=== PATIENT | male | born 1960 | race Caucasian/White ===

== ENCOUNTER → 2020-12-09 | Outpatient (CLI) | payer BC ==
--- NOTE | 2020-12-09 11:14 | XR ---
EXAMINATION TYPE: XR chest 2V DATE OF EXAM: 12/09/2020 COMPARISON: Chest x-ray 12/26/2011 HISTORY: Intercostal pain TECHNIQUE: Frontal and lateral views of the chest are obtained. FINDINGS: There is bandlike increased attenuation noted on the lateral exam which likely represents scarring, there is no pleural effusion or pneumothorax seen. The cardiac silhouette size is within n ormal limits. The osseous structures are intact, there is thoracic spondylosis. IMPRESSION: No acute cardiopulmonary process.
== END | disposition home or self-care (01) ==
LOC: RADXRMAIN 09:11
PROVIDERS: ATTEND Internal Medicine
DX: R07.82 Intercostal pain (principal)
CPT/HCPCS: 71046

== ENCOUNTER → 2021-12-08 | Outpatient (CLI) | payer BC ==
--- NOTE | 2021-12-08 09:06 | XR ---
EXAMINATION TYPE: XR ribs LT DATE OF EXAM: 12/08/2021 COMPARISON: Chest x-ray 12/09/2020 HISTORY: Pain TECHNIQUE: 4 views submitted FINDINGS: There is expansion and destructive change involving the lateral margin of the left seventh rib. Arthropathy of the shoulder. Suspect additional expansion of the anterior margin of the left 10t h rib. IMPRESSION: 1. There appears to be expansion of destructive change involving the left seventh rib laterally recom mend CT scan to assess for mass. 2. Expansion of the anterolateral left 10th rib also expected. Intraosseous lesion suspected.
== END ==
LOC: RADXRMAIN 08:25
PROVIDERS: ATTEND Internal Medicine
DX: M99.88 Other biomechanical lesions of rib cage (principal)

== ENCOUNTER → 2021-12-14 | Outpatient (CLI) | payer BC ==
[2021-12-14 12:51] LABS: African American GFR (CKD) >90 (>60 ml/min/1.73 sqM); Blood Urea Nitrogen 15 mg/dL (9-20); Non-African American GFR(CKD) 89 (>60 ml/min/1.73 sqM)
--- NOTE | 2021-12-14 15:43 | CT ---
EXAMINATION TYPE: CT Chest Abd Pelvis w con DATE OF EXAM: 12/14/2021 COMPARISON: CT dated 12/27/2014 HISTORY: Left sided rib/flank pain. CT DLP: 2275.1 mGycm Automated exposure control for dose reduction was used. CONTRAST: CT scan of the chest, abdomen and pelvis is performed with Oral Contrast and with IV Contrast, patien t injected with 100ml mL of Isovue 300. FINDINGS: LUNGS: 4 mm nodule is seen along the superior aspect of the right oblique fissure (image #20, series 4), slightly more prominent compared to 2015 CT scan when it measured 3 mm. Stable 5 mm nodule at the anterior aspect of the left lower lobe, image #32, series 4. Scattered bilateral basal linear pulmon sabrina atelectasis. Unremarkable lungs otherwise. Patent central airways. No pleural effusion. MEDIASTINUM: There are no greater than 1 cm hilar or mediastinal lymph nodes. No cardiomegaly. Arter ial and coronary atherosclerotic calcifications. No pericardial effusion is seen. OTHER: Expansile lytic lesion is seen involving the axillary portion of the left seventh rib measuri ng 2.7 x 5 cm, not appreciated previously. Similar yet smaller lesion measuring 2 cm is seen at the a xillary portion of the right sixth rib. 16 mm lytic lesion in T2 vertebral body. Other multiple bilat eral costal and thoracic vertebral tiny lytic lesions, not appreciated previously. LIVER/GB: Enlarged liver with suspected hepatic steatosis. With this limitation, no definite hepatic focal lesion identified. Unremarkable gallbladder. PANCREAS: No significant abnormality is seen. SPLEEN: No significant abnormality is seen. ADRENALS: No significant abnormality is seen. KIDNEYS: Left renal cysts without suspicious feature, otherwise unremarkable kidneys. BOWEL: Unremarkable nondistended stomach, duodenum and small bowel. No gross colonic mass. Normal ap pendix. REPRODUCTIVE ORGANS: Enlarged heterogeneous prostate with prostatic concretion, please correlate with PSA level. Unremarkable seminal vesicles and urinary bladder. LYMPH NODES: No greater than 1 cm abdominal or pelvic lymph nodes are appreciated. OSSEOUS STRUCTURES: Multiple lytic lesions are seen in the lumbar spine, sacrum and pelvic bones kavitha uring up to 2.2 cm in the right iliac bone, 18 mm in the left acetabulum and 2.1 cm in L1 vertebral b obdulio posteriorly, extending to the left pedicle. L5 vertebral body lytic lesion with partial collapse and fracture of the upper endplate. OTHER: Large infrarenal abdominal aortic aneurysm measuring 5.3 cm compared to 3.[address] scan . More inferior smaller aneurysm measuring 3.5 cm. Extensive arterial atherosclerotic calcifications. Ectatic left common iliac artery measuring 18 mm. Bilateral fat-containing inguinal hernias. IMPRESSION: 1. Multiple osseous lytic lesions appreciated in the chest, abdomen and pelvis, largest involving the axillary portion of the left seventh rib as described above. This could represent metastasis of unkn own primary or multiple myeloma. Recommend further workup for multiple myeloma and bone scan assessme nt. No obvious primary disease seen in the chest, abdomen or the pelvis. 2. Enlarged prostate, please correlate with PSA level. 3. Significant interval enlargement of the infrarenal abdominal aortic aneurysm, for vascular surgery consultation. Other incidental findings as described above.
== END | disposition home or self-care (01) ==
LOC: RADCTMAIN 11:54
PROVIDERS: ATTEND Internal Medicine
DX: I10 Essential (primary) hypertension (principal); R63.4 Abnormal weight loss; R07.81 Pleurodynia; N40.0 Benign prostatic hyperplasia without lower urinary tract symptoms
CPT/HCPCS: 82565; 84520; 71260; 74177; 36415; Q9967

== ENCOUNTER → 2021-12-22 | Outpatient (CLI) | payer BC ==
[2021-12-23 01:47] LABS: Protein, Total 7.1 g/dL (6.2-8.2)
[2021-12-23 07:33] LABS: Free Kappa Lt Chain Qnt, Serum 1.12 mg/dL (0.33-1.94); Free Lambda Lt Chain Qnt, Seru 0.96 mg/dL (0.57-2.63)
== END | disposition home or self-care (01) ==
LOC: LABWHC1 12:59
PROVIDERS: ATTEND Internal Medicine
DX: M89.9 Disorder of bone, unspecified (principal)
CPT/HCPCS: 36415; 83883; 84165; 86334

== ENCOUNTER → 2021-12-29 | Outpatient (CLI) | payer BC ==
--- NOTE | 2021-12-29 14:11 | MR ---
MR brain without contrast HISTORY: Metastatic disease Multiplanar multisequence imaging obtained through the brain. Correlation CT brain 12/27/2014, CT chest abdomen pelvis 12/14/2021 Mucosal disease is present within the bilateral maxillary sinuses, ethmoid air cells and sphenoid sin us. The orbits show symmetric appearance. Within the right parietal calvarium, axial image 25, sagitt al image #27, coronal image #20 there is an oval focus of intermediate signal on 1 T1 weighted images , increased signal in inversion recovery T2-weighted sequences. Within the posterior nasopharynx on t he right there is a focus of hyperintensity, axial image #7 and inversion recovery T2-weighted sequen abigail, some central lower signal, possible polyp, inflammatory change. Corpus callosum, pituitary, cervical medullary junction, cerebellopontine angles are within normal li mits. There is no restricted diffusion. There are expected vascular flow voids. Brain signal is remarkable for some scattered foci of hyperintensity and inversion recovery T2-weight ed sequences, approximately 3-5 lesions are present, largest is within the external capsule on the ri ght measures approximately 6 mm, axial image 18. There is no hemorrhage or hydrocephalus. IMPRESSION: Indeterminate calvarial lesion, consider bone scan for better evaluation. Nonspecific whi te matter demyelination of questionable clinical significance. Contrast-enhanced study may add value. Sinus disease.
== END ==
LOC: RADMRIMAIN 12:28
PROVIDERS: ATTEND Orthopaedic Surgery
DX: M89.59 Osteolysis, multiple sites (principal)
CPT/HCPCS: 70551

== ENCOUNTER → 2021-12-31 | Outpatient (CLI) | payer BC ==
--- NOTE | 2022-01-02 06:46 | MR ---
EXAMINATION TYPE: MR madie/lspine wo con DATE OF EXAM: 12/31/2021 COMPARISON: Lumbar spine x-ray December 22, 2021. CT chest abdomen and pelvis December 14, 2021 HISTORY: Rib pain, multiple lesions seen on CT, osteolysis. TECHNIQUE: Multiplanar, multisequence imaging of the cervical and lumbar spine is performed without I V contrast. FINDINGS: Cervical spine: FINDINGS: Sagittal images of the cervical spine show the craniocervical junction to appear within nor mal limits. The cervical and upper thoracic spinal cord is normal in course, caliber, and signal. V ertebral alignment is anatomic. The vertebral body and intravertebral disk heights are normal. There is round focal low T1 and inferiorly isointense T2 lesion posterior inferior C4 level left of midlin e sagittal image 6 and larger lesion anterior T2 vertebra sagittal image 7. A third lesion anterior r ight C7 vertebra is noted coronal image 6. Axial images show C2-C3 level to appear within normal limits. Axial images at C3-C4 level show mild broad-based posterior disc protrusion minimally effacing anteri or thecal sac, mild bilateral neural foraminal narrowing is present. Axial images at C4-C5 level show some uncovertebral facet degenerative changes causing mild left-side d neural foraminal narrowing. There is confirmation of posterior round 8mm lesion slightly hyperinten se relative to remainder of vertebra at inferior C4 level. Axial images at C5-C6 level shows central disc protrusion effacing the anterior thecal sac along with mild bilateral neural foraminal narrowing. Axial images at C6-C7 and C7-T1 levels appear within normal limits. IMPRESSION: There are 3 subtle round lesions corresponding to lytic lesions on CT could reflect lytic metastatic disease or involvement from multiple myeloma. Correlate clinically. Mild multilevel degen erative changes are seen as detailed above. Lumbar spine: Sagittal images of the lumbar spine show vertebral body heights and alignment to appear satisfactory. Multilevel disc desiccation is seen but this space heights are maintained. The conus medullaris is normal in position and signal ending at mid L1 level. There are several round osseous lesions through out the lumbar vertebra including several L5 level for reference sagittal image 12, largest involves the superior endplate sagittal image 8. There is lesion involving the posterior superior L1 vertebra to left of midline extending into the pedicle and lateral elements of low T1 and slightly low T2 sign al. Axial images show confirm mild to moderate multilevel facet arthropathy. There is mild/moderate broad -based disc bulge at L2-L3 through L4-L5 levels with minimal effacement of the anterior thecal sac. B ilateral neural foramina fairly well maintained. Confirmation of osseous lesions with largest inferio r posterior L1 level extending into pedicle axial image 31 shows slight T1 hypointensity and T2 hyper intensity relative to remainder of the vertebra. There is known bilobed or loculated AAA measuring up to 5.0 cm transversely axial image 24 redemonstrated. IMPRESSION: Confirmation of known multiple osseous lesions could be product of metastatic disease and /or multiple myeloma. Mild multilevel degenerative changes of lumbar spine as detailed above. Known A AA up to 5.0 cm on this study is noted.
== END | disposition home or self-care (01) ==
LOC: RADMRIMAIN 20:46
PROVIDERS: ATTEND Orthopaedic Surgery
DX: M89.50 Osteolysis, unspecified site (principal)
CPT/HCPCS: 72141; 72148

== ENCOUNTER 2022-01-13 08:35 | Day surgery (SDC) | payer BC ==
[2022-01-13] MEDS ORDERED: HYDROmorphone 0.5 MG/0.5 ML SYRINGE IVP PRN (09:05)
[2022-01-13] MEDS ORDERED: ALPRAZolam 0.5 MG TAB PO PRN (09:05)
[2022-01-13 09:19] LABS: Mean Platelet Volume 7.6; Platelet Count 226 k/uL (150-450)
[2022-01-13 09:24] LABS: Prothrombin Time 10.5 sec (9.0-12.0)
[2022-01-13 09:35] VITALS: TEMP 97.6
[2022-01-13 11:55] VITALS: BP 128/81; PULSE 89; RESP 16
--- NOTE | 2022-01-13 12:41 | US ---
EXAMINATION TYPE: US FNA first lesion DATE OF EXAM: 01/13/2022 HISTORY: Left seventh rib mass. FINDINGS: Maximal barrier technique was utilized. Hand hygiene achieved with soap and water and alco hol-based hand rub. The skin overlying a suitable path to the patient's mass in the lateral left ant nth rib was localized with ultrasound and the overlying skin prepped and draped. Ultrasound was util ized with sterile technique. Lidocaine was used for local anesthesia. A skin price was made with a s calpel. An 18-gauge needle was advanced under direct ultrasound guidance and core specimen obtained of the mass. Specimen submitted in formalin to Pathology. Following the procedure, hemostasis achie zora and the patient is discharged in stable condition without complication. IMPRESSION:STATUS POST ULTRASOUND GUIDED CORE BIOPSY OF left rib MASS, PATHOLOGY IS PENDING. THIS NV OCEDURE IS PERFORMED BY THE UNDERSIGNED.
== END 2022-01-13 11:45 | disposition home or self-care (01) ==
LOC: RADPROMAIN 08:35
PROVIDERS: ATTEND Internal Medicine Hematology & Oncology
DX: M89.9 Disorder of bone, unspecified (principal); C79.51 Secondary malignant neoplasm of bone
CPT/HCPCS: 10005; 36415; 82947; 85049; 85610; 88305

== ENCOUNTER → 2022-01-26 | Outpatient (CLI) | payer BC ==
--- NOTE | 2022-01-26 15:58 | NM ---
EXAMINATION TYPE: NM bone scan whole body DATE OF EXAM: 01/26/2022 COMPARISON: CT scan 12/14/2021 HISTORY: History of malignancy Delayed whole-body scanning was performed following the injection of 22 mCi Tc 99m MDP. Images acqui red 4 hours post injection. FINDINGS: There are areas of intense abnormal uptake involving the bilateral rib cage suspicious for metastases . There are areas of moderate uptake involving the thoracic and lumbar spine likely degenerative. Add itional areas of more moderate focal uptake involving the vertebral column are concordant with CT sca n suggestive of malignancy. Abnormal uptake involving the shoulders and faintly within the feet typical of arthritic change. Photopenic defect involving the right iliac bone is compatible with bony metastasis. Area involving t he sacrum is less well seen. IMPRESSION: 1. Bone scan findings are concordant with CT findings suggestive of widespread bony metastasis involv ing the rib cage, pelvic bones and vertebral column.
== END | disposition home or self-care (01) ==
LOC: RADNMMAIN 09:49
PROVIDERS: ATTEND Internal Medicine Hematology & Oncology
DX: Z03.89 Encounter for observation for other suspected diseases and conditions ruled out (principal); C79.51 Secondary malignant neoplasm of bone
CPT/HCPCS: 78306; A9503

== ENCOUNTER 2022-02-08 07:45 | Inpatient (IN) | payer BC ==
[2022-02-08] MEDS ORDERED: SODIUM CHLORIDE 0.9% 1,000 ML IV STA (08:15)
[2022-02-08] MEDS ORDERED: ONDANSETRON 4 MG/2 ML VIAL IVP STA (08:15)
[2022-02-08] MEDS ORDERED: HYDROmorphone 0.5 MG/0.5 ML SYRINGE IVP STA ×4 (08:15→11:15)
[2022-02-08 08:48] LABS: Basophils # (A) 0.1 k/uL (0-0.2); Basophils % (A) 2 %; Eosinophils # (A) 0.3 k/uL (0-0.7); Eosinophils % (A) 4 %; HCT 44.1 % (39.0-53.0); HGB 14.6 gm/dL (13.0-17.5); Lymphocytes # (A) 1.6 k/uL (1.0-4.8); Lymphocytes % (A) 22 %; MCH 28.2 pg (25.0-35.0); MCHC 33.1 g/dL (31.0-37.0); Monocytes # (A) 0.6 k/uL (0-1.0); Monocytes % (A) 9 %; Neutrophils # (A) 4.5 k/uL (1.3-7.7); Neutrophils % (A) 62 %; Platelet Count 237 k/uL (150-450); RBC 5.19 m/uL (4.30-5.90); RDW 13.1 % (11.5-15.5); WBC 7.4 k/uL (3.8-10.6)
[2022-02-08 09:05] LABS: ALT 42 U/L (4-49); AST 62 U/L (17-59); African American GFR (CKD) >90 (>60 ml/min/1.73 sqM); Albumin 4.7 g/dL (3.5-5.0); Alkaline Phosphatase 62 U/L (38-126); Amylase 48 U/L (30-110); Anion Gap 8 mmol/L; Blood Urea Nitrogen 16 mg/dL (9-20); Calcium 9.6 mg/dL (8.4-10.2); Carbon Dioxide 27 mmol/L (22-30); Chloride 101 mmol/L (98-107); Glucose 155 mg/dL (74-99); Lipase 110 U/L (23-300); Non-African American GFR(CKD) >90 (>60 ml/min/1.73 sqM); Potassium 4.2 mmol/L (3.5-5.1); Sodium 136 mmol/L (137-145); Total Bilirubin 0.8 mg/dL (0.2-1.3); Total Protein 7.4 g/dL (6.3-8.2)
[2022-02-08 09:07] LABS: INR 0.9 (<1.2); Partial Thromboplastin Time 22.8 sec (22.0-30.0); Prothrombin Time 9.9 sec (9.0-12.0)
--- NOTE | 2022-02-08 10:04 | ED ---
Abdominal Pain HPI - General Chief Complaint: Abdominal Pain Stated Complaint: back pain, cancer pt Time Seen by Provider: 02/08/22 08:06 Source: patient, family, RN notes reviewed Mode of arrival: wheelchair Limitations: no limitations - History of Present Illness Initial Comments: This a 61-year-old male presents emergency department with chief complaint of left-sided abdominal pain, back pain. Patient states that recently found out that he has diffuse areas of cancer of his bone. He states that they found an his rib, back and pelvis. States his pain is worse and much different than the pain is been experiencing the unsure what the primary cause of his cancer is. Patient denies any history of any bowel infections. Patient states she's had subjective fevers chills and sweats. No chest pain or shortness breath patient has no dysuria he does not that his been constipated for last 4 days. - Related Data Home Medications Medication Instructions Recorded Confirmed Tamsulosin [Flomax] 0.4 mg PO DAILY 12/27/14 02/08/22 Cyclobenzaprine [Flexeril] 10 mg PO HS 01/06/22 02/08/22 HYDROcodone/APAP 5-325MG [Fallon 1 tab PO Q6HR PRN 01/06/22 02/08/22 5-325] Lisinopril-Hctz 10-12.5 mg 0.5 tab PO DAILY 01/06/22 02/08/22 [Zestoretic 10-12.5] metFORMIN HCL 500 mg PO BID 01/06/22 02/08/22 Omeprazole 40 mg PO DAILY 02/08/22 02/08/22 Allergies Allergy/AdvReac Type Severity Reaction Status Date / Time No Known Allergies Allergy Verified 02/08/22 09:41 Review of Systems ROS Statement: Those systems with pertinent positive or pertinent negative responses have been documented in the HPI. ROS Other: All systems not noted in ROS Statement are negative. Past Medical History Past Medical History: Asthma, Diabetes Mellitus, Hypertension, Prostate Disorder Additional Past Medical History / Comment(s): BPH, rib lesions and small lesion on lung found on imaging, aneursym, hernia History of Any Multi-Drug Resistant Organisms: None Reported Past Surgical History: Appendectomy, Hernia Repair Additional Past Surgical History / Comment(s): went to remove appendix but patient did not have one Past Anesthesia/Blood Transfusion Reactions: No Reported Reaction Past Psychological History: No Psychological Hx Reported Smoking Status: Never smoker Past Alcohol Use History: None Reported Past Drug Use History: None Reported - Past Family History Father Family Medical History: No Reported History General Exam Limitations: no limitations General appearance: alert, in no apparent distress Head exam: Present: atraumatic, normocephalic, normal inspection Eye exam: Present: normal appearance, PERRL, EOMI. Absent: scleral icterus, conjunctival injection, periorbital swelling ENT exam: Present: normal exam, normal oropharynx, mucous membranes moist Neck exam: Present: normal inspection. Absent: tenderness, meningismus, lymphadenopathy Respiratory exam: Present: normal lung sounds bilaterally. Absent: respiratory distress, wheezes, rales, rhonchi, stridor Cardiovascular Exam: Present: regular rate, normal rhythm, normal heart sounds. Absent: systolic murmur, diastolic murmur, rubs, gallop, clicks GI/Abdominal exam: Present: soft, tenderness, normal bowel sounds. Absent: distended, guarding, rebound, rigid Back exam: Present: tenderness, paraspinal tenderness, vertebral tenderness. Absent: full ROM Neurological exam: Present: alert, oriented X3 Skin exam: Present: warm, dry, intact, normal color. Absent: rash Course Vital Signs 02/08/22 07:46 Temperature 97.0 F L Pulse Rate 95 Respiratory 18 Rate Blood Pressure 144/88 O2 Sat by Pulse 97 Oximetry Medical Decision Making - Medical Decision Making CT shows evidence of worsening vertebral compression. Patient's pain is uncontrolled. Patient will be admitted for pain management and further evaluation. - Lab Data Result diagrams: 02/08/22 08:38 02/08/22 08:38 Lab Results 02/08/22 02/08/22 02/08/22 Range/Units 08:38 08:38 08:38 WBC 7.4 (3.8-10.6) k/uL RBC 5.19 (4.30-5.90) m/uL Hgb 14.6 (13.0-17.5) gm/dL Hct 44.1 (39.0-53.0) % MCV 85.0 (80.0-100.0) fL MCH 28.2 (25.0-35.0) pg MCHC 33.1 (31.0-37.0) g/dL RDW 13.1 (11.5-15.5) % Plt Count 237 (150-450) k/uL MPV 8.0 Neutrophils % 62 % Lymphocytes % 22 % Monocytes % 9 % Eosinophils % 4 % Basophils % 2 % Neutrophils # 4.5 (1.3-7.7) k/uL Lymphocytes # 1.6 (1.0-4.8) k/uL Monocytes # 0.6 (0-1.0) k/uL Eosinophils # 0.3 (0-0.7) k/uL Basophils # 0.1 (0-0.2) k/uL PT 9.9 (9.0-12.0) sec INR 0.9 (<1.2) APTT 22.8 (22.0-30.0) sec Sodium 136 L (137-145) mmol/L Potassium 4.2 (3.5-5.1) mmol/L Chloride 101 (98-107) mmol/L Carbon Dioxide 27 (22-30) mmol/L Anion Gap 8 mmol/L BUN 16 (9-20) mg/dL Creatinine 0.84 (0.66-1.25) mg/dL Est GFR (CKD-EPI)AfAm >90 (>60 ml/min/1.73 sqM) Est GFR (CKD-EPI)NonAf >90 (>60 ml/min/1.73 sqM) Glucose 155 H (74-99) mg/dL Plasma Lactic Acid Jamaal (0.7-2.0) mmol/L Calcium 9.6 (8.4-10.2) mg/dL Total Bilirubin 0.8 (0.2-1.3) mg/dL AST 62 H (17-59) U/L ALT 42 (4-49) U/L Alkaline Phosphatase 62 (38-126) U/L Total Protein 7.4 (6.3-8.2) g/dL Albumin 4.7 (3.5-5.0) g/dL Amylase 48 (30-110) U/L Lipase 110 (23-300) U/L 02/08/22 Range/Units 08:38 WBC (3.8-10.6) k/uL RBC (4.30-5.90) m/uL Hgb (13.0-17.5) gm/dL Hct (39.0-53.0) % MCV (80.0-100.0) fL MCH (25.0-35.0) pg MCHC (31.0-37.0) g/dL RDW (11.5-15.5) % Plt Count (150-450) k/uL MPV Neutrophils % % Lymphocytes % % Monocytes % % Eosinophils % % Basophils % % Neutrophils # (1.3-7.7) k/uL Lymphocytes # (1.0-4.8) k/uL Monocytes # (0-1.0) k/uL Eosinophils # (0-0.7) k/uL Basophils # (0-0.2) k/uL PT (9.0-12.0) sec INR (<1.2) APTT (22.0-30.0) sec Sodium (137-145) mmol/L Potassium (3.5-5.1) mmol/L Chloride (98-107) mmol/L Carbon Dioxide (22-30) mmol/L Anion Gap mmol/L BUN (9-20) mg/dL Creatinine (0.66-1.25) mg/dL Est GFR (CKD-EPI)AfAm (>60 ml/min/1.73 sqM) Est GFR (CKD-EPI)NonAf (>60 ml/min/1.73 sqM) Glucose (74-99) mg/dL Plasma Lactic Acid Jamaal 1.5 (0.7-2.0) mmol/L Calcium (8.4-10.2) mg/dL Total Bilirubin (0.2-1.3) mg/dL AST (17-59) U/L ALT (4-49) U/L Alkaline Phosphatase (38-126) U/L Total Protein (6.3-8.2) g/dL Albumin (3.5-5.0) g/dL Amylase (30-110) U/L Lipase (23-300) U/L Disposition Clinical Impression: Metastatic bone cancer, Intractable pain, Back pain Disposition: ADMITTED IP TO THIS [facility] Condition: Fair Referrals: Criselda Herbert MD [Primary Care Provider] - 1-2 days
--- NOTE | 2022-02-08 10:19 | CT ---
EXAMINATION TYPE: CT abdomen pelvis w con DATE OF EXAM: 02/08/2022 COMPARISON: CT December 14, 2021 HISTORY: BACK PAIN. CANCER PT CT DLP: 1888 mGycm, Automated Exposure Control for Dose Reduction was Utilized. CONTRAST: CT scan of the abdomen and pelvis is performed without oral and with IV Contrast, patient injected wi th 100ML mL of Isovue 300. FINDINGS: LUNG BASES: Mild bibasilar linear scarring and/or atelectasis. LIVER/GB: Liver is diffusely low-density consistent with diffuse fatty infiltration. PANCREAS: No significant abnormality is seen. SPLEEN: No significant abnormality is seen. ADRENALS: No significant abnormality is seen. KIDNEYS: Symmetric intramedullary uptake and excretion without hydronephrosis seen bilaterally. Mildl y distended bladder. BOWEL: Suboptimal evaluation without enteric contrast. No suspicious small or large bowel dilatation is seen. PROSTATE/SEMINAL VESICLES: Enlarged prostate bulging on bladder base redemonstrated consistent with B PH. LYMPH NODES: No greater than 1cm abdominal or pelvic lymph nodes are appreciated. OSSEOUS STRUCTURES: Lytic lesion right iliac bone on image 65 has increased in size from prior. Addit ional smaller scattered lytic lesions throughout the pelvis and bilateral femurs along with the lumba r spine are more numerous and larger from prior largest posterior aspect of L1 vertebra extends into the pedicle and anterior aspect of the spinal canal current study axial image 33 and sagittal image 6 4. Lytic lesion superior L5 vertebra breaks the endplate similar to prior. OTHER: Persistent focal AAA up to 5.1 cm axial image 40 unchanged from prior. IMPRESSION: Lytic osseous metastatic neoplastic progression with L1 lesion abutting the left anterola teral aspect of the spinal canal. Otherwise no significant new or acute finding identified.
[2022-02-08] MEDS ORDERED: HYDROmorphone 1 MG/ML 1 ML SYRINGE IVP PRN (11:39)
[2022-02-08] MEDS ORDERED: TEMAZEPAM 15 MG CAP PO PRN (11:39)
[2022-02-08] MEDS ORDERED: ONDANSETRON 4 MG/2 ML VIAL IVP PRN (11:39)
[2022-02-08] MEDS ORDERED: HYDROmorphone 0.5 MG/0.5 ML SYRINGE IVP PRN ×2 (11:39→15:54)
[2022-02-08] MEDS ORDERED: NALOXONE 0.4 MG/ML 1 ML VIAL IV PRN (11:39)
[2022-02-08] MEDS ORDERED: bisacodyL 5 MG TABLET.DR PO PRN (11:40)
--- NOTE | 2022-02-08 13:14 | P.HPIM ---
History of Present Illness H&P Date: 02/08/22 Chief Complaint: Back pain 61 year old male who comes into the hospital with severe back pain. Patient states recent diagnosis of metastatic bone lesions. He reports his last oncology visit was 3 weeks ago. Unfortunately they have not found a primary diagnosis of malignancy. Patient reports that he is having new severe back. Patient denies any history of any bowel incontinence. Patient states she's had subjective fevers chills and sweats. No chest pain or shortness breath patient has no dysuria. Review of Systems For complete 12 point review of system was completed and pertinent positives and negatives noted in HPI Past Medical History Past Medical History: Asthma, Diabetes Mellitus, Hypertension, Prostate Disorder Additional Past Medical History / Comment(s): BPH, rib lesions and small lesion on lung found on imaging, aneursym, hernia History of Any Multi-Drug Resistant Organisms: None Reported Past Surgical History: Appendectomy, Hernia Repair Additional Past Surgical History / Comment(s): went to remove appendix but patient did not have one Past Anesthesia/Blood Transfusion Reactions: No Reported Reaction Past Psychological History: No Psychological Hx Reported Smoking Status: Never smoker Past Alcohol Use History: None Reported Past Drug Use History: None Reported - Past Family History Father Family Medical History: No Reported History Medications and Allergies Home Medications Medication Instructions Recorded Confirmed Type Tamsulosin [Flomax] 0.4 mg PO DAILY 12/27/14 02/08/22 History Cyclobenzaprine [Flexeril] 10 mg PO HS 01/06/22 02/08/22 History HYDROcodone/APAP 5-325MG [[place] 1 tab PO Q6HR PRN 01/06/22 02/08/22 History 5-325] Lisinopril-Hctz 10-12.5 mg 0.5 tab PO DAILY 01/06/22 02/08/22 History [Zestoretic 10-12.5] metFORMIN HCL 500 mg PO BID 01/06/22 02/08/22 History Omeprazole 40 mg PO DAILY 02/08/22 02/08/22 History Allergies Allergy/AdvReac Type Severity Reaction Status Date / Time No Known Allergies Allergy Verified 02/08/22 09:41 Physical Exam Osteopathic Statement: *. No significant issues noted on an osteopathic stru ctural exam other than those noted in the History and Physical/Consult. Vitals: Vital Signs Temp Pulse Resp BP Pulse Ox 02/08/22 11:45 85 16 123/86 96 02/08/22 07:46 97.0 F L 95 18 144/88 97 Intake and Output 02/07/22 02/08/22 02/08/22 22:59 06:59 14:59 Other: Weight 113.398 kg General appearance: alert, in no apparent distress Head exam: Present: atraumatic, normocephalic, normal inspection Eye exam: Present: normal appearance, PERRL, EOMI. Absent: scleral icterus, conjunctival injection, periorbital swelling ENT exam: Present: normal exam, normal oropharynx, mucous membranes moist Neck exam: Present: normal inspection. Absent: tenderness, meningismus, lymphadenopathy Respiratory exam: Present: normal lung sounds bilaterally. Absent: respiratory distress, wheezes, rales, rhonchi, stridor Cardiovascular Exam: Present: regular rate, normal rhythm, normal heart sounds. Absent: systolic murmur, diastolic murmur, rubs, gallop, clicks GI/Abdominal exam: Present: soft, tenderness, normal bowel sounds. Absent: distended, guarding, rebound, rigid Back exam: Present: tenderness, paraspinal tenderness, vertebral tenderness. Absent: full ROM Neurological exam: Present: alert, oriented X3 Skin exam: Present: warm, dry, intact, normal color. Absent: rash Results CBC & Chem 7: 02/08/22 08:38 02/08/22 08:38 Labs: Abnormal Lab Results - Last 24 Hours (Table) 02/08/22 Range/Units 08:38 Sodium 136 L (137-145) mmol/L Glucose 155 H (74-99) mg/dL AST 62 H (17-59) U/L Assessment and Plan (1) Back pain Current Visit: Yes Status: Acute Code(s): M54.9 - DORSALGIA, UNSPECIFIED SNOMED Code(s): 699345395 (2) Intractable pain Current Visit: Yes Status: Acute Code(s): R52 - PAIN, UNSPECIFIED SNOMED Code(s): 13733392 (3) Metastatic bone cancer Current Visit: Yes Status: Acute Code(s): C41.9 - MALIGNANT NEOPLASM OF BONE AND ARTICULAR CARTILAGE, UNSP SNOMED Code(s): 793163336 Plan: Intractable back pain Multiple lytic lesions -Patient admitted to observation floor for pain control and evaluation by hematology oncology -Patient had CT abdomen and pelvis performed showing lytic osseous metastatic neoplastic progression with L1 lesion abutting the left anterolateral aspect of the spinal canal. -Continue with pain control with IV Dilaudid for breakthrough. We'll also add oxycodone, IV Toradol. Continue with Flexeril Diabetes mellitus -Hold metformin and continue with sliding scale coverage Hypertension -Currently controlled continue with home medications lisinopril hydrochlorothiazide Diet: Diabetic DVT prophylaxis: Lovenox CODE STATUS: Full
[2022-02-08] MEDS ORDERED: MAGNESIUM HYDROXIDE 2,400 MG/10 ML CUP PO PRN (14:05)
[2022-02-08] MEDS ORDERED: MAGNESIUM HYDROXIDE 2,400 MG/10 ML CUP PO STA (14:05)
[2022-02-08] MEDS ORDERED: MORPHINE SULFATE 4 MG/ML SYRINGE IVP PRN (14:09)
[2022-02-08] MEDS ORDERED: MORPHINE SULFATE 2 MG/ML SYRINGE IVP PRN (14:09)
--- NOTE | 2022-02-08 14:39 | P.CONS ---
History of Present Illness - Reason for Consult Consult date: 02/08/22 bone lesions, cord compression Requesting physician: Marcelino Chi - Chief Complaint intractable pain - History of Present Illness Mr. Scott is a very pleasant 61-year-old male who was recently seen in late December by Dr. Davison. Earlier this year he presented with left-sided chest pain, generally after physical exertion, slow to improve. This is been going on for at least a year previously. Pain was moderately severe, 7/10. He brought this to the attention of his PCP, x-ray of the ribs 12/08/21 showed destructive changes with expansion involving the left seventh rib. CT CAP 12/14/21 showed multiple osseous lytic lesions in the chest, abdomen and pelvis, there was partial collapse and fracture of the L5 vertebral body. PSA was normal. Patient was referred to Oncology. Patient was worked up for multiple myeloma. 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 M protein 0.2 g/dl, not N and overt myeloma. Biopsy of the rib lesion was requested. This was unfortunately nondiagnostic. MRI of the C and L-spine did show extensive rubio involvement. Bone scan was ordered, patient referred to Orthopedic Spine Surgeon for biopsy and to see if there was anything further that they could offer. This follow-up was pending. Patient comes to ER with c/o persistent back pain, progressive over the last 4 days to the point where it was "unbearable", patient using prescribed pain meds but, not getting any relief. He is unable to sit up, he is been having to use a bedpan a home. The pain is so intense that it causes him to have severe sweats and he will come close to passing out. Patient has also not had a bowel movement in 4 days. He denies fevers, chills, chest pain, cough, nausea, vomiting, abdominal pain or cramping, he has sensation of bowel and bladder, no incontinence, he denies numbness or tingling in the lower extremities. Review of Systems 14 point ROS is neg except as stated in HPI Past Medical History Past Medical History: Asthma, Cancer, COPD, Diabetes Mellitus, Hypertension, Prostate Disorder, Vascular Disorder Additional Past Medical History / Comment(s): Pt recently diagnosed with metastatic cancer to bone, NIDDM type II recently diagnosed, abdominal aortic aneurysm recently diagnosed, bilateral inguinal hernias, BPH, past gastric ulcer. History of Any Multi-Drug Resistant Organisms: None Reported Past Surgical History: Hernia Repair Additional Past Surgical History / Comment(s): Surgery to remove appendix and found that pt did not have one, umbilical hernia repair, EGD, colonoscopy Past Anesthesia/Blood Transfusion Reactions: No Reported Reaction Past Psychological History: No Psychological Hx Reported Additional Psychological History / Comment(s): Pt resides with his spouse. He does not have any assistive device but thinks he may need something soon. He is currently unable to drive d/t pain, his spouse can drive. Smoking Status: Light tobacco smoker Past Alcohol Use History: Rare Past Drug Use History: None Reported - Past Family History Father History Unknown: Yes Family Medical History: No Reported History Additional Family Medical History / Comment(s): Pt is estranged. Mother History Unknown: Yes Additional Family Medical History / Comment(s): Pt is estranged Medications and Allergies Home Medications Medication Instructions Recorded Confirmed Type Tamsulosin [Flomax] 0.4 mg PO DAILY 12/27/14 02/08/22 History Cyclobenzaprine [Flexeril] 10 mg PO HS 01/06/22 02/08/22 History HYDROcodone/APAP 5-325MG [[place] 1 tab PO Q6HR PRN 01/06/22 02/08/22 History 5-325] Lisinopril-Hctz 10-12.5 mg 0.5 tab PO DAILY 01/06/22 02/08/22 History [Zestoretic 10-12.5] metFORMIN HCL 500 mg PO BID 01/06/22 02/08/22 History Omeprazole 40 mg PO DAILY 02/08/22 02/08/22 History Allergies Allergy/AdvReac Type Severity Reaction Status Date / Time No Known Allergies Allergy Verified 02/08/22 09:41 Physical Exam Vitals: Vital Signs Temp Pulse Resp BP Pulse Ox 02/08/22 11:45 85 16 123/86 96 02/08/22 07:46 97.0 F L 95 18 144/88 97 Intake and Output 02/07/22 02/08/22 02/08/22 22:59 06:59 14:59 Other: Weight 113.398 kg - Constitutional General appearance: cooperative, mild distress, obese - EENT Eyes: anicteric sclerae, EOMI ENT: hearing grossly normal, normal oropharynx - Neck Neck: no lymphadenopathy - Respiratory Respiratory: bilateral: CTA - Cardiovascular Rhythm: regular Heart sounds: normal: S1, S2 Abnormal Heart Sounds: no systolic murmur, no diastolic murmur, no rub, no S3 Gallop, no S4 Gallop, no click, no other leg Peripheral Edema: bilateral: None - Gastrointestinal General gastrointestinal: no absent bowel sounds, decreased bowel sounds, distended, no hepatomegaly, no hyperactive bowel sounds, no normal bowel sounds, no organomegaly, no rigid, no scaphoid, soft, no splenomegaly, no tenderness, no umbilical hernia, no ventral hernia - Integumentary Integumentary: normal - Neurologic Pt able discern light touch on lower extremities. Neurologic: CNII-XII intact - Musculoskeletal BLE pain when standing or sitting up, no muscle wasting noted. Hip flexion, knee extension, plantar flexion all intact, strength maintained bilaterally 4- 5/5. - Psychiatric Psychiatric: A&O x's 3, appropriate affect, intact judgment & insight Results CBC & Chem 7: 02/08/22 08:38 02/08/22 08:38 Labs: Abnormal Lab Results - Last 24 Hours (Table) 02/08/22 Range/Units 08:38 Sodium 136 L (137-145) mmol/L Glucose 155 H (74-99) mg/dL AST 62 H (17-59) U/L CT scan - abdomen: report reviewed CT scan - pelvis: report reviewed (ET of the abdomen and pelvis without contrast impression is osseous metastatic L1 lesion abutting the left anterior lateral aspect of the spine.) Assessment and Plan (1) Bone lesion Current Visit: Yes Status: Acute Priority: High Code(s): M89.9 - DISORDER OF BONE, UNSPECIFIED SNOMED Code(s): 410302729 (2) Back pain Current Visit: Yes Status: Acute Priority: High Code(s): M54.9 - DORSALGIA, UNSPECIFIED SNOMED Code(s): 766248361 (3) Intractable pain Current Visit: Yes Status: Acute Priority: High Code(s): R52 - PAIN, UNSPECIFIED SNOMED Code(s): 18494403 Plan: Previous rib biopsy nondiagnostic. Laboratory workup thus far nondiagnostic. Patient was due to see Dr. Mejia sent in the outpatient setting for evaluation for possible surgical intervention and/or just biopsy-needed for diagnosis. Unfortunately, pain became unbearable for him. Patient is now admitted for pain control. Have consulted Dr. Murphy for evaluation and recommendations. Discussed case with PharmD. Patient's pain medications have been adjusted. IV morphine range dosing and IV dexamethasone, 4 mg every 6 hours, added to pain mgmt regimen. Continuation of NSAIDs and Flexeril as prescribed. Addition of senna/Colace twice a day, 1 dose of milk of magnesia and milk of mag when necessary for suspected narcotic-induced constipation, may also have slowed bowel motility because of spinal cord being pressed upon. Discussed plan of care with patient and his . They are in agreement for medication adjustments, bowel regimen and plan to see Orthopedic Spine Surgeon.
[2022-02-08] MEDS: KETOROLAC 15 MG/ML 1 ML VIAL IVP PRN ×2 (15:16→21:16)
[2022-02-08] MEDS: DEXAMETHASONE SOD PHOSPHATE 4 MG/ML 1 ML VIAL IVP SCH (15:16)
[2022-02-08 15:57] LABS: Appearance,Urine Clear (Clear); Bilirubin,Urine Negative (Negative); Blood,Urine Negative (Negative); Color,Urine Yellow; Glucose,Urine (UA) Negative (Negative); Ketones,Urine Negative (Negative); Leukocyte Esterase,Urine Negative (Negative); Nitrite,Urine Negative (Negative); Protein,Urine Negative (Negative); Specific Gravity,Urine 1.038 (1.001-1.035); Urobilinogen,Urine <2.0 mg/dL (<2.0)
[2022-02-08 16:53] LABS: Glucose,Whole Blood 157 mg/dL (75-99)
[2022-02-08] MEDS: SENNOSIDES-DOCUSATE SODIUM 1 EACH TAB PO SCH (20:36)
[2022-02-08] MEDS: CYCLOBENZAPRINE 10 MG TAB PO SCH (20:36)
[2022-02-08 20:49] LABS: Glucose,Whole Blood 197 mg/dL (75-99)
[2022-02-08] MEDS ORDERED: metFORMIN 500 MG TAB PO SCH (21:00)
[2022-02-08] MEDS: INSULIN ASPART (NovoLOG) 100 UNIT/ML VIAL SQ SCH (21:15)
[2022-02-09] MEDS: DEXAMETHASONE SOD PHOSPHATE 4 MG/ML 1 ML VIAL IVP SCH ×4 (00:01→17:01)
[2022-02-09] MEDS: KETOROLAC 15 MG/ML 1 ML VIAL IVP PRN ×4 (03:03→22:31)
[2022-02-09 07:07] LABS: Glucose,Whole Blood 179 mg/dL (75-99)
[2022-02-09] MEDS: LISINOPRIL-HCTZ 10-12.5 MG 1 EACH TAB PO SCH (07:20)
[2022-02-09] MEDS: PANTOPRAZOLE 40 MG TABLET PO SCH (07:21)
[2022-02-09] MEDS: SENNOSIDES-DOCUSATE SODIUM 1 EACH TAB PO SCH ×2 (07:22→21:02)
[2022-02-09] MEDS: ENOXAPARIN 40 MG/0.4 ML SYRINGE SQ SCH (07:22)
[2022-02-09] MEDS: TAMSULOSIN 0.4 MG CAP.ER.24H PO SCH (07:22)
[2022-02-09] MEDS: INSULIN ASPART (NovoLOG) 100 UNIT/ML VIAL SQ SCH ×4 (07:23→21:05)
[2022-02-09 11:07] LABS: African American GFR (CKD) 93.7 (60.0-200.0); Anion Gap 13.1 mmol/L (10.00-18.00); BUN/Creat Ratio 22.1 Ratio (12.00-20.00); Blood Urea Nitrogen 22.1 mg/dL (9.0-27.0); Calcium 10.3 mg/dL (8.7-10.3); Carbon Dioxide 23.9 mmol/L (20.0-27.5); Non-African American GFR(CKD) 80.9 (60.0-200.0); Potassium 4.7 mmol/L (3.5-5.5)
[2022-02-09 11:33] LABS: Glucose,Whole Blood 257 mg/dL (75-99)
--- NOTE | 2022-02-09 11:43 | P.CNOR ---
History of Present Illness - [facility] Consult date: 02/09/22 Consult reason: low back pain History of present illness: Patient is a 61-year-old male who presented to [facility] yesterday morning with regards to worsening pain in his low back. Patient has b een evaluated in the outpatient setting by Dr. Murphy at [facility] for this condition. Patient has been going through a oncology workup for lytic lesions that were found and multiple bony aspects, this to include his lumbar spine, ribs, pelvis. Patient was evaluated by interventional radiology about 3 weeks ago, an attempt was made to biopsy a lesion from the rib area, this was nondiagnostic. Patient was a she's scheduled to follow-up with Dr. Davison today, but he is currently in the hospital. Abdomen/pelvis computed tomography scan was done upon arrival to the hospital. Again demonstrated a lytic lesions in the bony areas. Dr. Murphy myself for both able to review the MRIs from back in December 2021. Patient's symptoms include worsening back pain he states this started this past Monday. It was very comfortable for him to ambulate due to the amount of pain in his back, it did radiate a little bit to the left flank. Patient denies any pain that radiated down the legs. Patient denies any loss of bowel or bladder function. Patient denies any paresthesias to the lower extremities including the genital/peroneal region. Currently patient has no other orthopedic complaints at the time. He denies any recent medical events. He is eager to figure out the diagnosis from the lytic lesions and to have a treatment plan in place. Review of Systems Constitutional: Reports as per HPI Past Medical History Past Medical History: Asthma, Cancer, COPD, Diabetes Mellitus, Hypertension, Prostate Disorder, Vascular Disorder Additional Past Medical History / Comment(s): Pt recently diagnosed with metastatic cancer to bone, NIDDM type II recently diagnosed, abdominal aortic aneurysm recently diagnosed, bilateral inguinal hernias, BPH, past gastric ulcer. History of Any Multi-Drug Resistant Organisms: None Reported Past Surgical History: Hernia Repair Additional Past Surgical History / Comment(s): Surgery to remove appendix and found that pt did not have one, umbilical hernia repair, EGD, colonoscopy Past Anesthesia/Blood Transfusion Reactions: No Reported Reaction Past Psychological History: No Psychological Hx Reported Additional Psychological History / Comment(s): Pt resides with his spouse. He does not have any assistive device but thinks he may need something soon. He is currently unable to drive d/t pain, his spouse can drive. Smoking Status: Light tobacco smoker Past Alcohol Use History: Rare Past Drug Use History: None Reported - Past Family History Father History Unknown: Yes Family Medical History: No Reported History Additional Family Medical History / Comment(s): Pt is estranged. Mother History Unknown: Yes Additional Family Medical History / Comment(s): Pt is estranged Medications and Allergies Home Medications Medication Instructions Recorded Confirmed Type Tamsulosin [Flomax] 0.4 mg PO DAILY 12/27/14 02/08/22 History Cyclobenzaprine [Flexeril] 10 mg PO HS 01/06/22 02/08/22 History HYDROcodone/APAP 5-325MG [[place] 1 tab PO Q6HR PRN 01/06/22 02/08/22 History 5-325] Lisinopril-Hctz 10-12.5 mg 0.5 tab PO DAILY 01/06/22 02/08/22 History [Zestoretic 10-12.5] metFORMIN HCL 500 mg PO BID 01/06/22 02/08/22 History Omeprazole 40 mg PO DAILY 02/08/22 02/08/22 History Allergies Allergy/AdvReac Type Severity Reaction Status Date / Time No Known Allergies Allergy Verified 02/08/22 09:41 Physical Examination Gen: AOx3, NAD VSS stable at this time Integument: No open lesions or sores are visualized throughout the cervical, thoracic or lumbar spine. There are no areas of erythema present. Palpation: Patient remains nontender with palpation to the midline and paraspinal aspect of the cervical and thoracic spine Patient demonstrates mild tenderness with palpation to the midline and pa raspinal regions the lumbar spine Patient demonstrates no point tenderness to the bilateral upper or lower extremities ROM: Full range of motion all major muscle groups of the bilateral upper and lower extremities, no focal deficits are appreciated Sensory Exam: Senory exam to light touch is intact C5-T1 Senosry exam to light touch is intact L2-S1 Motor: 5/5 strength appreciated in the bilateral upper extremities with shoulder elevation, shoulder abduction, elbow extension, elbow flexion, wrist extension, wrist flexion, finger intrinsics 5/5 strength appreciated in the bilateral lower extremities with hip flexion, knee extension, knee flexion, plantar flexion, dorsiflexion, EHL, FHL Reflexes: 2/4 in all UE and LE Negative Edwin's bilaterally Negative clonus bilaterally Special Test: Logroll maneuver reproduces no groin pain in the bilateral lower extremities Results - Labs Labs: Abnormal Lab Results - Last 24 Hours (Table) 02/08/22 02/08/22 02/08/22 Range/Units 15:44 16:49 20:48 POC Glucose (mg/dL) 157 H 197 H (75-99) mg/dL Ur Specific [place] 1.038 H (1.001-1.035) 02/09/22 Range/Units 07:05 POC Glucose (mg/dL) 179 H (75-99) mg/dL Ur Specific [place] (1.001-1.035) H & H 02/08/22 Range/Units 08:38 Hgb 14.6 (13.0-17.5) gm/dL Hct 44.1 (39.0-53.0) % Coagulation 02/08/22 Range/Units 08:38 INR 0.9 (<1.2) Result Diagrams: 02/08/22 08:38 02/09/22 06:39 Assessment and Plan Assessment: Low back pain Multiple osseous lytic lesions Other medical comorbidities Plan: I was able to discuss the case, including with physical exam findings and imaging studies with my attending Dr. Murphy At this time we are trying to determine a definitive diagnosis of the lytic lesi ons that are present in the multiple bony areas. The initial biopsy attempt of the rib area was unsuccessful. A message was left with interventional radiology to contact our service to discuss this in further detail. I did discuss with the patient and his at bedside that a lumbar surgery is likely in his future, but having a diagnosis and having all medical specialties in the same page is a priority. Patient is showing no acute neuropathic signs at this time. Patient's pain is under better control at this time. Prescription for an LSO brace will be ordered while the patient is in hospital for his current condition Recommend weight-bear as tolerated with walker GI and DVT prophylaxis per primary medical service Further recommendations to follow after discussion with my attending and other medical specialties Time with Patient: Less than 30
--- NOTE | 2022-02-09 13:04 | P.PN ---
Subjective Progress Note Date: 02/09/22 Principal diagnosis: Lytic lesions in bones Biopsy of rib non diagnostic initially. Dr. Davison did speak with Ortho surg regarding biopsy of lumbar spine lesion, however risk may too high. Await Ortho final decision and if no plan for biopsy from surgery will repeat rib lesion. Objective - Vital Signs Vital signs: Vital Signs Temp 97.5 F L 02/09/22 07:00 Pulse 92 02/09/22 07:00 Resp 16 02/09/22 07:00 BP 128/82 02/09/22 07:00 Pulse Ox 97 02/09/22 07:00 Intake & Output 02/08/22 02/09/22 02/09/22 18:59 06:59 18:59 Intake Total 118 118 Balance 118 118 Weight 113.398 kg Intake: Oral 118 118 Other: Voiding Method Toilet Urinal # Voids 1 1 1 # Bowel Movements 1 - Exam - Constitutional General appearance: cooperative, mild distress, obese - EENT Eyes: anicteric sclerae, EOMI ENT: hearing grossly normal, normal oropharynx - Neck Neck: no lymphadenopathy - Respiratory Respiratory: bilateral: CTA - Cardiovascular Rhythm: regular Heart sounds: normal: S1, S2 Abnormal Heart Sounds: no systolic murmur, no diastolic murmur, no rub, no S3 Gallop, no S4 Gallop, no click, no other leg Peripheral Edema: bilateral: None - Gastrointestinal General gastrointestinal: no absent bowel sounds, decreased bowel sounds, distended, no hepatomegaly, no hyperactive bowel sounds, no normal bowel sounds, no organomegaly, no rigid, no scaphoid, soft, no splenomegaly, no tenderness, no umbilical hernia, no ventral hernia - Integumentary Integumentary: normal - Neurologic Pt able discern light touch on lower extremities. Neurologic: CNII-XII intact - Musculoskeletal BLE pain when standing or sitting up, no muscle wasting noted. Hip flexion, knee extension, plantar flexion all intact, strength maintained bilaterally 4- 5/5. - Psychiatric Psychiatric: A&O x's 3, appropriate affect, intact judgment & insight - Labs CBC & Chem 7: 02/08/22 08:38 02/09/22 06:39 Labs: Abnormal Lab Results - Last 24 Hours (Table) 02/08/22 02/08/22 02/08/22 Range/Units 08:38 15:44 16:49 Sodium 136 L (137-145) mmol/L Glucose 155 H (74-99) mg/dL POC Glucose (mg/dL) 157 H (75-99) mg/dL AST 62 H (17-59) U/L Ur Specific [place] 1.038 H (1.001-1.035) 02/08/22 02/09/22 Range/Units 20:48 07:05 Sodium (137-145) mmol/L Glucose (74-99) mg/dL POC Glucose (mg/dL) 197 H 179 H (75-99) mg/dL AST (17-59) U/L Ur Specific [place] (1.001-1.035) Assessment and Plan Plan: CT scan - abdomen: report reviewed CT scan - pelvis: report reviewed (ET of the abdomen and pelvis without contrast impression is osseous metastatic L1 lesion abutting the left anterior lateral aspect of the spine.) Assessment and Plan (1) Bone lesion Current Visit: Yes Status: Acute Priority: High Code(s): M89.9 - DISORDER OF BONE, UNSPECIFIED SNOMED Code(s): 575696362 (2) Back pain Current Visit: Yes Status: Acute Priority: High Code(s): M54.9 - DORSALGIA, UNSPECIFIED SNOMED Code(s): 126366946 (3) Intractable pain Current Visit: Yes Status: Acute Priority: High Code(s): R52 - PAIN, UNSPECIFIED SNOMED Code(s): 28678517 Plan: Previous rib biopsy nondiagnostic. Laboratory workup thus far nondiagnostic. Patient was due to see Dr. Mejia sent in the outpatient setting for evaluation for possible surgical intervention and/or just biopsy-needed for diagnosis. Await Ortho decision for tissue biopsy of lumbar lesion Continue on dexamethasone and PPI and Intensive bowel regimen. Dr. Viveros: I have completed the full history and physical and developed the above impression and plan, agree with dictation, dictated as a scribe.
[2022-02-09 13:19] LABS: Basophils # (A) 0.01 X 10*3/uL (0.00-0.10); Basophils % (A) 0.1 %; Eosinophils # (A) 0 X 10*3/uL (0.04-0.35); Eosinophils % (A) 0 %; HCT 43.6 % (39.6-50.0); HGB 14.3 g/dL (13.0-17.0); Immature Grans, Automated 0.7 %; Lymphocytes # (A) 0.67 X 10*3/uL (0.90-5.00); Lymphocytes % (A) 5.5 %; MCH 27.8 pg (27.0-32.0); MCHC 32.8 g/dL (32.0-37.0); MCV 84.8 fL (80.0-97.0); Mean Platelet Volume 10.8 fL (9.5-12.2); Monocytes # (A) 0.19 X 10*3/uL (0.20-1.00); Monocytes % (A) 1.6 %; NRBC Per 100 WBC 0 /100 WBCS (0.0-0.0); Neutrophils # (A) 11.29 X 10*3/uL (1.80-7.70); Neutrophils % (A) 92.1 %; Platelet Count 262 X 10*3/uL (140-440); RBC 5.14 X 10*6/uL (4.40-5.60); RDW 13.2 % (11.5-14.5); WBC 12.25 X 10*3/uL (4.50-10.00)
--- NOTE | 2022-02-09 14:21 | P.PN ---
Subjective Progress Note Date: 02/09/22 Principal diagnosis: lytic bone lesions 61 year old male who comes into the hospital with severe back pain. Patient states recent diagnosis of metastatic bone lesions. He reports his last oncology visit was 3 weeks ago. Unfortunately they have not found a primary diagnosis of malignancy. Patient reports that he is having new severe back. Patient denies any history of any bowel incontinence. Patient states she's had subjective fevers chills and sweats. No chest pain or shortness breath patient has no dysuria. 02/09/2022: Patient seen and examined. His pain is better controlled today on with treatment of IV steroids, IV Dilaudid for breakthrough, IV Toradol. He den ies any new complaints of nausea or vomiting no fever or chills no difficulty in breathing. Objective - Vital Signs Vital signs: Vital Signs Temp 97.5 F L 02/09/22 07:00 Pulse 92 02/09/22 07:00 Resp 16 02/09/22 07:00 BP 128/82 02/09/22 07:00 Pulse Ox 97 02/09/22 07:00 Intake & Output 02/08/22 02/09/22 02/09/22 18:59 06:59 18:59 Intake Total 118 355 Output Total 2 Balance 118 353 Weight 113.398 kg Intake: Oral 118 355 Output: Urine 2 Other: Voiding Method Toilet Urinal # Voids 1 1 1 # Bowel Movements 1 - Exam General appearance: alert, in no apparent distress Head exam: Present: atraumatic, normocephalic, normal inspection Eye exam: Present: normal appearance, PERRL, EOMI. Absent: scleral icterus, conjunctival injection, periorbital swelling ENT exam: Present: normal exam, normal oropharynx, mucous membranes moist Neck exam: Present: normal inspection. Absent: tenderness, meningismus, lymphadenopathy Respiratory exam: Present: normal lung sounds bilaterally. Absent: respiratory distress, wheezes, rales, rhonchi, stridor Cardiovascular Exam: Present: regular rate, normal rhythm, normal heart sounds. Absent: systolic murmur, diastolic murmur, rubs, gallop, clicks GI/Abdominal exam: Present: soft, tenderness, normal bowel sounds. Absent: distended, guarding, rebound, rigid Back exam: Present: tenderness, paraspinal tenderness, vertebral tenderness. Absent: full ROM Neurological exam: Present: alert, oriented X3 Skin exam: Present: warm, dry, intact, normal color. Absent: rash - Labs CBC & Chem 7: 02/09/22 06:39 02/09/22 06:39 Labs: Abnormal Lab Results - Last 24 Hours (Table) 02/08/22 02/08/22 02/08/22 Range/Units 15:44 16:49 20:48 WBC (4.50-10.00) X 10*3/uL Immature Gran # (0.00-0.04) X 10*3/uL Neutrophils # (1.80-7.70) X 10*3/uL Lymphocytes # (0.90-5.00) X 10*3/uL Monocytes # (0.20-1.00) X 10*3/uL Eosinophils # (0.04-0.35) X 10*3/uL BUN/Creatinine Ratio (12.00-20.00) Ratio Glucose (70-110) mg/dL POC Glucose (mg/dL) 157 H 197 H (75-99) mg/dL Ur Specific [place] 1.038 H (1.001-1.035) 02/09/22 02/09/22 02/09/22 Range/Units 06:39 06:39 07:05 WBC 12.25 H (4.50-10.00) X 10*3/uL Immature Gran # 0.09 H (0.00-0.04) X 10*3/uL Neutrophils # 11.29 H (1.80-7.70) X 10*3/uL Lymphocytes # 0.67 L (0.90-5.00) X 10*3/uL Monocytes # 0.19 L (0.20-1.00) X 10*3/uL Eosinophils # 0 L (0.04-0.35) X 10*3/uL BUN/Creatinine Ratio 22.10 H (12.00-20.00) Ratio Glucose 172 H (70-110) mg/dL POC Glucose (mg/dL) 179 H (75-99) mg/dL Ur Specific [place] (1.001-1.035) 02/09/22 Range/Units 11:30 WBC (4.50-10.00) X 10*3/uL Immature Gran # (0.00-0.04) X 10*3/uL Neutrophils # (1.80-7.70) X 10*3/uL Lymphocytes # (0.90-5.00) X 10*3/uL Monocytes # (0.20-1.00) X 10*3/uL Eosinophils # (0.04-0.35) X 10*3/uL BUN/Creatinine Ratio (12.00-20.00) Ratio Glucose (70-110) mg/dL POC Glucose (mg/dL) 257 H (75-99) mg/dL Ur Specific [place] (1.001-1.035) Assessment and Plan (1) Back pain Current Visit: Yes Status: Acute Priority: High Code(s): M54.9 - DORSALGIA, UNSPECIFIED SNOMED Code(s): 246374310 (2) Intractable pain Current Visit: Yes Status: Acute Priority: High Code(s): R52 - PAIN, UNSPECIFIED SNOMED Code(s): 85765786 Plan: Intractable back pain Multiple lytic lesions -Patient switched from observation to full admission. -Orthopedic surgery team consulted for consideration of possible spine biopsy, possible surgical intervention regarding patient's back pain. -Patient had CT abdomen and pelvis performed showing lytic osseous metastatic neoplastic progression with L1 lesion abutting the left anterolateral aspect of the spinal canal. -Continue with pain control with IV Dilaudid for breakthrough. IV Toradol, oxycodone, Flexeril -Oncology following. Previous rib biopsy was nondiagnostic. We'll await further recommendations Diabetes mellitus -Hold metformin and continue with sliding scale coverage Hypertension -Currently controlled continue with home medications lisinopril hydrochlorothiazide Diet: Diabetic DVT prophylaxis: Lovenox CODE STATUS: Full
[2022-02-09 17:05] LABS: Glucose,Whole Blood 215 mg/dL (75-99)
[2022-02-09 20:30] LABS: Glucose,Whole Blood 262 mg/dL (75-99)
[2022-02-09] MEDS: CYCLOBENZAPRINE 10 MG TAB PO SCH (21:01)
[2022-02-09 23:20] VITALS: RESP 16
[2022-02-10] MEDS: DEXAMETHASONE SOD PHOSPHATE 4 MG/ML 1 ML VIAL IVP SCH ×3 (01:17→13:10)
[2022-02-10 06:57] LABS: Glucose,Whole Blood 230 mg/dL (75-99)
[2022-02-10] MEDS: LISINOPRIL-HCTZ 10-12.5 MG 1 EACH TAB PO SCH (07:59)
[2022-02-10] MEDS: SENNOSIDES-DOCUSATE SODIUM 1 EACH TAB PO SCH (07:59)
[2022-02-10] MEDS: PANTOPRAZOLE 40 MG TABLET PO SCH (08:00)
[2022-02-10] MEDS: TAMSULOSIN 0.4 MG CAP.ER.24H PO SCH (08:00)
[2022-02-10] MEDS: ENOXAPARIN 40 MG/0.4 ML SYRINGE SQ SCH (08:00)
[2022-02-10] MEDS: INSULIN ASPART (NovoLOG) 100 UNIT/ML VIAL SQ SCH ×2 (08:00→13:09)
[2022-02-10] MEDS: KETOROLAC 15 MG/ML 1 ML VIAL IVP PRN (08:01)
--- NOTE | 2022-02-10 08:28 | P.PN ---
Subjective Progress Note Date: 02/10/22 Principal diagnosis: low back pain Patient seen and examined today. He was sitting up in chair awaiting breakfast. Patient states his pain has been better controlled and is tolerating activity well. Patient denies any numbness or tingling to bilateral lower extremities; he demonstrates full range of motion with all extremities. Patient is anticipating discharge today once he receives his LSO brace. Informed patient that the office will be calling him with an appointment time regarding IR biopsy in [place]. Patient verbalizes understanding. Patient denies any fevers/chills, nausea/vomiting, chest pain. Objective - Vital Signs Vital signs: Vital Signs Temp 97.5 F L 02/10/22 07:00 Pulse 88 02/10/22 07:00 Resp 16 02/10/22 07:00 BP 144/89 02/10/22 07:00 Pulse Ox 100 02/10/22 07:00 Intake & Output 02/09/22 02/10/22 02/10/22 18:59 06:59 18:59 Intake Total 473 Output Total 2 Balance 471 Intake: Oral 473 Output: Urine 2 Other: # Voids 1 # Bowel Movements 1 - Exam Physical Examination General: The patient is awake and alert, in no acute distress Skin: Skin is warm and dry with no obvious rashes or lesions. Hairy patches absent, no dorsal skin dimples, no cafe au lait spots, and no surgical incisions. Eye: Pupils are equal, round and reactive to light, extra-ocular movements are intact; there is normal conjunctiva bilaterally. Neck: The neck is supple, there is no tenderness and ROM intact. Cardiovascular: There is a regular rate and rhythm. No murmur, rub or gallop is appreciated. Respiratory: Lungs are clear to auscultation, respirations are non-labored, breath sounds are equal. Gastrointestinal: Soft, non-distended, non-tender abdomen . Back: There is tenderness to palpation in the midline, paralumbar, and buttocks region. There is no obvious deformity . Musculoskeletal: ROM limited secondary to pain and stiffness from surgical procedure. Shoulder abduction 5/5, elbow flexors 5/5, wrist dorsiflexors 5/5. finger abductor 5/5, title clerk 5/5, hip flexor 5/5, knee flexor 5/5, ankle dorsiflexor 5/5, ankle plantarflexion 5/5 and extensor hallucis 5/5. Neurological: CN 2-12 intact. There are no obvious motor or sensory deficits. Movement and coordination equal and intact. Sensory exam to light touch intact C5-T1 and intact from L2-S1. Reflexes 2/4 in bilateral upper and lower extremities. Negative Hoffmans, babinski, and clonus signs. Psychiatric: Cooperative, appropriate mood & affect, normal judgment. - Labs CBC & Chem 7: 02/09/22 06:39 02/09/22 06:39 Labs: Abnormal Lab Results - Last 24 Hours (Table) 02/09/22 02/09/22 02/09/22 Range/Units 06:39 06:39 11:30 WBC 12.25 H (4.50-10.00) X 10*3/uL Immature Gran # 0.09 H (0.00-0.04) X 10*3/uL Neutrophils # 11.29 H (1.80-7.70) X 10*3/uL Lymphocytes # 0.67 L (0.90-5.00) X 10*3/uL Monocytes # 0.19 L (0.20-1.00) X 10*3/uL Eosinophils # 0 L (0.04-0.35) X 10*3/uL BUN/Creatinine Ratio 22.10 H (12.00-20.00) Ratio Glucose 172 H (70-110) mg/dL POC Glucose (mg/dL) 257 H (75-99) mg/dL 02/09/22 02/09/22 02/10/22 Range/Units 17:02 20:29 06:56 WBC (4.50-10.00) X 10*3/uL Immature Gran # (0.00-0.04) X 10*3/uL Neutrophils # (1.80-7.70) X 10*3/uL Lymphocytes # (0.90-5.00) X 10*3/uL Monocytes # (0.20-1.00) X 10*3/uL Eosinophils # (0.04-0.35) X 10*3/uL BUN/Creatinine Ratio (12.00-20.00) Ratio Glucose (70-110) mg/dL POC Glucose (mg/dL) 215 H 262 H 230 H (75-99) mg/dL Assessment and Plan Assessment: Low back pain Multiple osseous lytic lesions Other medical comorbidities Plan: Plan: -Appreciate linux consultant and team management. -Activity: Ambulate QID as tolerated. Use walker or cane if needed for stability. -Brace when up and about, not needed in bed or chair -Pain control: Adequate at this time -Meds: reviewed -Encourage IS 10x/hr -Dispo: Our office will be setting up an appt in [place] for patient to have IR biopsy. We will call patient with appt time. Patient is good for discharge from orthopedic standpoint once he receives his LSO brace. Recommend Medrol dose yo at discharge. *I reviewed and discussed this case with my attending Dr. Murphy, whom has reviewed this chart and films and is in agreement with assessment and plan of care as outlined above. I have personally seen and examined the patient, performed the documentation and the assessment and plan as written. Number of minutes spent on the visit: 20m. Time with Patient: Less than 30
[2022-02-10 10:08] LABS: HCT 43.6 % (39.6-50.0); HGB 14.3 g/dL (13.0-17.0); MCH 27.7 pg (27.0-32.0); MCHC 32.8 g/dL (32.0-37.0); MCV 84.3 fL (80.0-97.0); Mean Platelet Volume 10.6 fL (9.5-12.2); NRBC Per 100 WBC 0 /100 WBCS (0.0-0.0); Platelet Count 291 X 10*3/uL (140-440); RBC 5.17 X 10*6/uL (4.40-5.60); RDW 13.2 % (11.5-14.5); WBC 22.52 X 10*3/uL (4.50-10.00)
[2022-02-10 10:21] LABS: African American GFR (CKD) 90.4 (60.0-200.0); Anion Gap 14.6 mmol/L (10.00-18.00); BUN/Creat Ratio 28.25 Ratio (12.00-20.00); Blood Urea Nitrogen 29.1 mg/dL (9.0-27.0); Calcium 9.9 mg/dL (8.7-10.3); Carbon Dioxide 21.3 mmol/L (20.0-27.5); Potassium 4.8 mmol/L (3.5-5.5)
--- NOTE | 2022-02-10 10:22 | CDI ---
Documentation Clarification Form Date: 02/10/2022 10:08:35 AM From: Molly HerreraTrinhSERGO aranda, CCDS Admit Date: 02/09/2022 08:42:00 AM Patient Name: Rad Scott Visit Number: [id number] Discharge Date: ATTENTION: The Clinical Documentation Specialists (CDI) and [facility] Coding Staff appreciate your assistance in clarifying documentation. Please respond to the clarification below the line at the bottom and electronically sign. The CDI & [facility] Coding staff will review the response and follow-up if needed. Please note: Queries are made part of the Legal Health Record. If you have any questions, please contact the author of this message via ITS. Dr. Toan Inman: This patient presented with the diagnosis of Metastatic Bone Cancer, Intractable Pain and Back Pain. Please clarify if there is a relationship between the diagnosis and Metastatic Bone Cancer and Intractable Pain. History/Risk Factors per the 02/08 H/P: Asthma, DM, Hypertension, BPH, Rib Lesions & Small Lesion found on Lung on Imaging, Aneurysm, Hernia status post repair. Clinical Indicators: Presented to the ED on 02/08 with Left side abdominal pain and back pain. Per the patient, recently found out he has diffuse areas of cancer of his bone(s): Rib, Back & Pelvis. Also fevers, chills & sweats, Constipation. Admit with Metastatic Bone Cancer, Intractable Pain and Back Pain 02/08 VS: T 97.0, P 95, R 18, BP 144/88, PO 97, BMI 33.9 02/08 LAB: Na 136, Glucose 155, AST 62 02/08: UA: clear, Specific [place] 1.038 02/08 CT Abdomen/Pelvis: Lytic osseous metastatic neoplastic progression with L1 lesion abutting the left anterolateral aspect of the spinal canal. Otherwise no significant new or acute finding identified. Treatment 02/08: Accuchecks, Insulin sliding scale, Oncology & Ortho Spine Consults, IV Dilaudid 0.56mg x5, IV Dilaudid 1 mg q3H, IV Zofran 4 mg x1, IV Na Cl 1,000 mls @ 999 mls/hr q1H, IV Toradol 30 mg q6H, IV Morphine Sulfate 2 mg q4H/prn, IV Decadron 4 mg q6H. Please clarify the relationship, if any, which is clinically appropriate for this patient: [ ] Intractable Pain is due to Metastatic Bone Cancer [ ] Intractable Pain is not due to Metastatic Bone Cancer [ ] Other explanation of clinical findings (please specify): [ ] Unable to determine (no explanation for clinical findings) (Template Last Revised: December 2020) Intractable Pain is due to Metastatic Bone Cancer MTDD
--- NOTE | 2022-02-10 10:29 | CDI ---
Documentation Clarification Form Date: 02/10/2022 10:22:00 AM From: Molly Trinh CCS, CCDS Admit Date: 02/09/2022 08:42:00 AM Patient Name: Rad Scott Visit Number: [id number] Discharge Date: ATTENTION: The Clinical Documentation Specialists (CDI) and [facility] Coding Staff appreciate your assistance in clarifying documentation. Please respond to the clarification below the line at the bottom and electronically sign. The CDI & [facility] Coding staff will review the response and follow-up if needed. Please note: Queries are made part of the Legal Health Record. If you have any questions, please contact the author of this message via ITS. Dr. Toan Inman: Per the 02/08 ED Note and the 02/08 History & Physical, the patient has a history of Diabetes Mellitus on Oral Hypoglycemic: Metformin 500 mg po BID. Additional specificity regarding the specificity of Diabetes during this admission is requested. History/Risk Factors per the 02/08 H/P: Asthma, DM, Hypertension, BPH, Rib Lesions & Small Lesion found on Lung on Imaging, Aneurysm, Hernia status post repair. Clinical Indicators: Presented to the ED on 02/08 with Left side abdominal pain and back pain. Per the patient, recently found out he has diffuse areas of cancer of his bone(s): Rib, Back & Pelvis. Also fevers, chills & sweats, Constipation. Admit with Metastatic Bone Cancer, Intractable Pain and Back Pain 02/08 VS: T 97.0, P 95, R 18, BP 144/88, PO 97, BMI 33.9 02/08 LAB: Na 136, AST 62 02/08: UA: clear, Specific [place] 1.038 Glucose 02/08: 155. 02/09: 172. 02/10: 191 Treatment 02/08: Accuchecks, Insulin sliding scale, Oncology & Ortho Spine Consults, IV Dilaudid 0.56mg x5, IV Dilaudid 1 mg q3H, IV Zofran 4 mg x1, IV Na Cl 1,000 mls @ 999 mls/hr q1H, IV Toradol 30 mg q6H, IV Morphine Sulfate 2 mg q4H/prn, IV Decadron 4 mg q6H. Please clarify the following related to the patient's Diabetes: [ ] Diabetes Type 2 [ ] Diabetes Type 2 with Hyperglycemia [ ] Diabetes Type 2 without Hyperglycemia [ ] Other, please specify: [ ] Unable to Determine (Template Last Revised: December 2020) Diabetes Type 2 with Hyperglycemia MTDD
[2022-02-10 10:57] LABS: Basophils # (A) 0.02 X 10*3/uL (0.00-0.10); Basophils % (A) 0.1 %; Eosinophils # (A) 0 X 10*3/uL (0.04-0.35); Eosinophils % (A) 0 %; Immature Grans, Automated 0.7 %; Lymphocytes # (A) 0.88 X 10*3/uL (0.90-5.00); Lymphocytes % (A) 3.9 %; Monocytes # (A) 0.38 X 10*3/uL (0.20-1.00); Monocytes % (A) 1.7 %; Neutrophils # (A) 21.09 X 10*3/uL (1.80-7.70); Neutrophils % (A) 93.6 %
[2022-02-10 10:59] LABS: RBC Morphology NORMAL
[2022-02-10 11:54] LABS: Glucose,Whole Blood 186 mg/dL (75-99)
[2022-02-10 14:29] VITALS: BP 139/81; PULSE 94; TEMP 97.6
--- NOTE | 2022-02-10 14:42 | P.DS ---
Providers Date of admission: 02/09/22 08:42 Expected date of discharge: 02/10/22 Attending physician: Pratima Wilcox MD Consults: 02/08/22 11:39 Consult Physician Urgent Consulting Provider: Damon Davison Consult Reason/Comments: Metastatic cancer Do you want consulting provider notified?: Yes 02/08/22 14:11 Consult Physician Routine Consulting Provider: Judah Murphy Consult Reason/Comments: cord compression, surgery/biopsy (set to be seen outpt, symptomatic, pain) Do you want consulting provider notified?: Yes Primary care physician: Criselda Herbert MD Hospital Course: 61-year-old male who presented to [facility] with regards to worsening pain in his low back. Patient denies any pain that radiated down the legs. Patient denies any loss of bowel or bladder function. Patient denies any paresthesias to the lower extremities including the genital/peroneal region. Patient has been evaluated in the outpatient setting by Dr. Murphy for this condition. Patient has been going through a oncology workup for lytic lesions in the spinal bones, including his lumbar spine, ribs, pelvis. Patient was evaluated by interventional radiology about 3 weeks ago, an attempt was made to biopsy a lesion from the rib area, this was nondiagnostic. Patient was a she's scheduled to follow-up with Dr. Davison, but did not make it to that appointment due to the hospitalization. Abdomen/pelvis computed tomography scan was done upon arrival to the hospital. Again demonstrated a lytic lesions in the bony areas. He was again seen by Dr. Murphy who referred him for outpatient IR guided biopsy for diagnosis. No primary cancer is known yet. His pain is currently controolled on tramadol, will resume upon discharge. LSO brace will also be prescribed per ortho recommendations. Patient Condition at Discharge: Fair Plan - Discharge Summary Discharge Rx Participant: No New Discharge Prescriptions: New traMADol HCL [Ultram] 50 mg PO Q6HR PRN 3 Days #12 tab PRN Reason: Pain Continue Tamsulosin [Flomax] 0.4 mg PO DAILY Cyclobenzaprine [Flexeril] 10 mg PO HS metFORMIN HCL 500 mg PO BID Lisinopril-Hctz 10-12.5 mg [Zestoretic 10-12.5] 0.5 tab PO DAILY Omeprazole 40 mg PO DAILY Discontinued HYDROcodone/APAP 5-325MG [[place] 5-325] 1 tab PO Q6HR PRN PRN Reason: Pain Discharge Medication List Tamsulosin [Flomax] 0.4 mg PO DAILY 12/27/14 [History] Cyclobenzaprine [Flexeril] 10 mg PO HS 01/06/22 [History] Lisinopril-Hctz 10-12.5 mg [Zestoretic 10-12.5] 0.5 tab PO DAILY 01/06/22 [History] metFORMIN HCL 500 mg PO BID 01/06/22 [History] Omeprazole 40 mg PO DAILY 02/08/22 [History] traMADol HCL [Ultram] 50 mg PO Q6HR PRN 3 Days #12 tab 02/10/22 [Rx] Follow up Appointment(s)/Referral(s): Criselda Herbert MD [Primary Care Provider] - 1-2 days Judah Murphy DO [Doctor of Osteopathic Medicine] - 2 Weeks [facility]uns[facility] [NON-STAFF] - As Needed (Supplier of LSO Brace) Activity/Diet/Wound Care/Special Instructions: PT WOULD LIKE INFLUENZA VACCINE PRIOR TO DISCHARGE. Discharge Disposition: HOME SELF-CARE
--- NOTE | 2022-02-10 15:01 | P.PN ---
Subjective Progress Note Date: 02/10/22 Principal diagnosis: Lytic lesions in bones PLan for referral to IR Dr. Abraham at [place] for right iliac biopsy. Plan to taper steroids at discharge over 3-4 weeks Objective - Vital Signs Vital signs: Vital Signs Temp 97.5 F L 02/10/22 07:00 Pulse 88 02/10/22 07:00 Resp 16 02/10/22 07:00 BP 144/89 02/10/22 07:00 Pulse Ox 100 02/10/22 07:00 Intake & Output 02/09/22 02/10/22 02/10/22 18:59 06:59 18:59 Intake Total 473 118 Output Total 2 Balance 471 118 Intake: Oral 473 118 Output: Urine 2 Other: Voiding Method Toilet Urinal # Voids 1 # Bowel Movements 1 - Exam - Constitutional General appearance: cooperative, mild distress, obese - EENT Eyes: anicteric sclerae, EOMI ENT: hearing grossly normal, normal oropharynx - Neck Neck: no lymphadenopathy - Respiratory Respiratory: bilateral: CTA - Cardiovascular Rhythm: regular Heart sounds: normal: S1, S2 Abnormal Heart Sounds: no systolic murmur, no diastolic murmur, no rub, no S3 Gallop, no S4 Gallop, no click, no other leg Peripheral Edema: bilateral: None - Gastrointestinal General gastrointestinal: no absent bowel sounds, decreased bowel sounds, distended, no hepatomegaly, no hyperactive bowel sounds, no normal bowel sounds, no organomegaly, no rigid, no scaphoid, soft, no splenomegaly, no tenderness, no umbilical hernia, no ventral hernia - Integumentary Integumentary: normal - Neurologic Pt able discern light touch on lower extremities. Neurologic: CNII-XII intact - Musculoskeletal BLE pain when standing or sitting up, no muscle wasting noted. Hip flexion, kne e extension, plantar flexion all intact, strength maintained bilaterally 4-5/5. - Psychiatric Psychiatric: A&O x's 3, appropriate affect, intact judgment & insight - Labs CBC & Chem 7: 02/10/22 06:08 02/10/22 06:08 Labs: Abnormal Lab Results - Last 24 Hours (Table) 02/09/22 02/09/22 02/09/22 Range/Units 06:39 17:02 20:29 WBC 12.25 H (4.50-10.00) X 10*3/uL Immature Gran # 0.09 H (0.00-0.04) X 10*3/uL Neutrophils # 11.29 H (1.80-7.70) X 10*3/uL Lymphocytes # 0.67 L (0.90-5.00) X 10*3/uL Monocytes # 0.19 L (0.20-1.00) X 10*3/uL Eosinophils # 0 L (0.04-0.35) X 10*3/uL BUN (9.0-27.0) mg/dL BUN/Creatinine Ratio (12.00-20.00) Ratio Glucose (70-110) mg/dL POC Glucose (mg/dL) 215 H 262 H (75-99) mg/dL 02/10/22 02/10/22 02/10/22 Range/Units 06:08 06:08 06:56 WBC 22.52 H (4.50-10.00) X 10*3/uL Immature Gran # 0.15 H (0.00-0.04) X 10*3/uL Neutrophils # 21.09 H (1.80-7.70) X 10*3/uL Lymphocytes # 0.88 L (0.90-5.00) X 10*3/uL Monocytes # (0.20-1.00) X 10*3/uL Eosinophils # 0 L (0.04-0.35) X 10*3/uL BUN 29.1 H (9.0-27.0) mg/dL BUN/Creatinine Ratio 28.25 H (12.00-20.00) Ratio Glucose 191 H (70-110) mg/dL POC Glucose (mg/dL) 230 H (75-99) mg/dL 02/10/22 Range/Units 11:52 WBC (4.50-10.00) X 10*3/uL Immature Gran # (0.00-0.04) X 10*3/uL Neutrophils # (1.80-7.70) X 10*3/uL Lymphocytes # (0.90-5.00) X 10*3/uL Monocytes # (0.20-1.00) X 10*3/uL Eosinophils # (0.04-0.35) X 10*3/uL BUN (9.0-27.0) mg/dL BUN/Creatinine Ratio (12.00-20.00) Ratio Glucose (70-110) mg/dL POC Glucose (mg/dL) 186 H (75-99) mg/dL Assessment and Plan Plan: CT scan - abdomen: report reviewed CT scan - pelvis: report reviewed (ET of the abdomen and pelvis without contrast impression is osseous metastatic L1 lesion abutting the left anterior lateral aspect of the spine.) Assessment and Plan (1) Bone lesion Current Visit: Yes Status: Acute Priority: High Code(s): M89.9 - DISORDER OF BONE, UNSPECIFIED SNOMED Code(s): 998547899 (2) Back pain Current Visit: Yes Status: Acute Priority: High Code(s): M54.9 - DORSAL[place], UNSPECIFIED SNOMED Code(s): 733343819 (3) Intractable pain Current Visit: Yes Status: Acute Priority: High Code(s): R52 - PAIN, UNSPECIFIED SNOMED Code(s): 15723180 Plan: Previous rib biopsy nondiagnostic. Plan is to taper steroids over 3-[address] Abraham at [facility] for Right Iliac Biopsy Dr. Viveros: I have completed the full history and physical and developed the above impression and plan, agree with dictation, dictated as a scribe.
== END 2022-02-10 15:00 | disposition home or self-care (01) | DRG 948 ==
LOC: EC 07:45 → 6NMEDSUR 11:47 → OBSVTOIN 02-09 08:42
PROVIDERS: ADMIT Internal Medicine; ATTEND Internal Medicine
DX: G89.3 Neoplasm related pain (acute) (chronic) (principal); C79.51 Secondary malignant neoplasm of bone; C80.1 Malignant (primary) neoplasm, unspecified; D47.2 Monoclonal gammopathy; E11.65 Type 2 diabetes mellitus with hyperglycemia; F17.210 Nicotine dependence, cigarettes, uncomplicated; I10 Essential (primary) hypertension; J44.9 Chronic obstructive pulmonary disease, unspecified; N40.0 Benign prostatic hyperplasia without lower urinary tract symptoms; Z79.84 Long term (current) use of oral hypoglycemic drugs; Z79.899 Other long term (current) drug therapy; Z87.11 Personal history of peptic ulcer disease; I71.4 Abdominal aortic aneurysm, without rupture; K40.20 Bilateral inguinal hernia, without obstruction or gangrene, not specified as recurrent; Z90.49 Acquired absence of other specified parts of digestive tract; Z98.890 Other specified postprocedural states; J45.909 Unspecified asthma, uncomplicated; Z28.311 Partially vaccinated for COVID-19
CPT/HCPCS: 36415; 74177; 80048; 80053; 81003; 82150; 83605; 83690; 85025; 85610; 85730; 96361; 96375; 96376; 99285

== ENCOUNTER → 2022-04-06 | Outpatient (CLI) | payer BC ==
[2022-04-06 09:28] VITALS: BP 126/88; PULSE 99; RESP 18; TEMP 98.2
--- NOTE | 2022-04-06 09:37 | P.PAINPG ---
PQRS Measure Charge Sheet Comment: HISTORY OF PRESENT ILLNESS: 61 yr old male as a referral from Dr. Herbert & Dr Murphy for severe and chronic LBP x 8 mo secondary to DDD and facet arthropathy for evaluation. Pt states his pain level is currently at 5/10 in intensity, constant, sore, sharp, stabbing pain with radiation of pain towards the BLEs. Pain is provoked with standing up from a sitting position, lifting and bendin. Pain is palliated with alternating heat & ice daily, medications ([place]), topicals, sitting with a soft cushion, reclined He hasn't had PT or chiropractic treatments as he can't fit them in with his chemotherapy treatments. Past Medical History: Asthma, AAA, Metastatic Bone Cancer of unknown origin, COPD, NIDDM Type II, HTN, BPH, Gastric Ulcer Past Surgical History: Umbilical Hernia Repair, EGD/ Colonoscopy Social History: Tobacco use, Rare ETOH use, No illicit drug use. and lives with spouse. Family History: Father- Estranged. Mother- Estranged All: NKDA Meds: See list REVIEW OF ORGAN SYSTEMS: CONSTITUTIONAL: No fevers or chills. No recent weight loss. HEENT: No visual acuity loss, eye pain, difficulties with hearing. No nosebleeds. No difficulty swallowing. RESPIRATORY: Denies any troubles with breathing or dyspnea on exertion. CARDIOVASCULAR: Denies any chest pain, palpitations, or recent heart attacks. GASTROINTESTINAL: Denies fatty food intolerance. Has change in bowel habits and gas bloat. GENITOURINARY: Denies any blood in urine. Has increased urinary frequency. NEUROLOGICAL: + numbness and tingling along the distal e xtremities. No seizure disorders or headaches. MUSCULOSKELETAL: + back pain SKIN: No skin cancer. No rash. PSYCHIATRIC: Denies current depression or suicidal thoughts. ENDOCRINE: Denies current thyroid disorders. Denies any blood sugar glucose intolerance. HEME/LYMPHATIC: Denies any lumps and bumps around the neck. History of deep venous thrombosis. ALLERGY/IMMUNOLOGY: No immunoglobulin therapy. No immune deficiencies. BREAST: Denies current breast lumps, pain or nipple discharge. Physical Examinations : Constitutional : Cooperative , not in acute distress . HEENT: Neck supple. No Lymphadenopathy. Normal thyroid size . Eyes no ptosis , no icterus, no photophobia . Hearing intact. Normal oropharynx. No Thrush. Respiratory : Chest clear to auscultations bilaterally. No wheezing. No rhonchi. Cardiovascular : Regular rate and rhythm , S1 / S2. No S3 . No S4. Gastrointestinal : Abdomen soft. No tenderness. Bowel sounds x 4. No organomegaly . Genitourinary : Deferred. Neurologic : Cranial nerve II to XII intact. No focal neurological deficits. Psychiatric : alert & oriented x 3. Matching mood & appropriate affect. Judgment & insight intact. Lymphatic No Lymphadenopathy. Musculoskeletal : Cervical Spine Motor strength in the deltoid and biceps: Normal right side. Normal Left side Motor strength biceps and the wrist extensors: Normal right side . Normal left side Motor strength in the triceps muscle: Normal right side. Normal left side Deep tendon reflexes: Normal at the biceps. Normal at Brachioradialis. Normal at triceps Cervical facet loading test: positive bilaterally Spurling test: positive bilaterally Neck distraction test: positive bilaterally Edwin sign: positive bilaterally Lumbar spine Motor strength lower extremities ,thigh and legs 5/5 Right side , 5/5 Left side Deep tendon reflexes : Normal Knee Jerk. Normal Ankle Jerk Vertebral body tenderness over L4, L5 Lumbar facet Loading Test: positive Right / positive Left Range of motion of the lumbar spine Flexion 30 degrees, extension 10 degrees Straight Leg Raise test: Left/ Right positive at <30 degrees Chance test: positive right / positive left. Severe tenderness over the Sacroiliac joint on the Right / Left sides Gaenslen test: positive bilaterally Seated flexion test: positive bilaterally. Sacral spine : Severe tenderness over the Sacroiliac joint: right side / left side Range of motion: Flexion of the lumbar spine <60 degrees Range of motion: Extension of the lumbar spine <20 degrees Gaenslen's Test positive Lasha's Test positive Chance test: positive right side / left side Thigh Thrust Test Sacral Thrust Test Imaging: MRI without contrast of the lumbar spine from 12/31/21 reviewed Assessment/ Plan : Lumbar DDD Recommendation of LESI L4-L5. May need a series of injections, up to 3 within a six-month timeframe, for optimal pain relief. Risks, benefits of procedure discussed and patient verbalized understanding. Denies aspirin or anti- coagulant use. Admits to a medical history of diabetes. Protocol for discontinuation/ continuation of medications usha procedure discussed. All questions answered. I have spent greater than 50 minutes on patient care today. Dr Meier was available by phone for the evaluation of this patient. The time was used to review the medical records including relevant urine studies and Prescription history (MAPs), review of the available imaging, evaluation and examination of the patient, coordination of care with the medical staff and if applicable referring physicians, as well as creation of the medical record PQRS Narrative: Smoking Status Never smoker Home Medications: Ambulatory Orders Tamsulosin [Flomax] 0.4 mg PO DAILY 12/27/14 Cyclobenzaprine [Flexeril] 10 mg PO HS 01/06/22 Lisinopril-Hctz 10-12.5 mg [Zestoretic 10-12.5] 0.5 tab PO DAILY 01/06/22 metFORMIN HCL 500 mg PO BID 01/06/22 Omeprazole 40 mg PO DAILY 02/08/22 Hydrocodone/Acetaminophen [Hydrocodone/Acetaminophen 7.5-325] 1 each PO Q6HR 04/06/22 Controlled Substance Measures - Controlled Substance Measures Is patient prescribed a controlled substance at discharge?: No
== END ==
LOC: PNWHC3 08:43
PROVIDERS: ATTEND Specialist
DX: M51.36 Other intervertebral disc degeneration, lumbar region (principal); G89.3 Neoplasm related pain (acute) (chronic); M89.9 Disorder of bone, unspecified; J44.9 Chronic obstructive pulmonary disease, unspecified; E11.9 Type 2 diabetes mellitus without complications; I10 Essential (primary) hypertension
CPT/HCPCS: 99211

== ENCOUNTER → 2022-04-14 | Outpatient (CLI) | payer BC ==
[2022-04-14 09:51] LABS: INR 0.9 (<1.2); Partial Thromboplastin Time 22.8 sec (22.0-30.0); Prothrombin Time 9.8 sec (9.0-12.0)
[2022-04-14 15:19] LABS: Basophils # (A) 0.08 X 10*3/uL (0.00-0.10); Basophils % (A) 1.1 %; Eosinophils # (A) 0.15 X 10*3/uL (0.04-0.35); HCT 43.6 % (39.6-50.0); HGB 13.5 g/dL (13.0-17.0); Immature Grans, Automated 1.1 %; Lymphocytes # (A) 1.95 X 10*3/uL (0.90-5.00); Lymphocytes % (A) 26.2 %; MCH 27.3 pg (27.0-32.0); MCV 88.3 fL (80.0-97.0); Mean Platelet Volume 11.2 fL (9.5-12.2); Monocytes # (A) 0.43 X 10*3/uL (0.20-1.00); Monocytes % (A) 5.8 %; NRBC Per 100 WBC 0 /100 WBCS (0.0-0.0); Neutrophils # (A) 4.75 X 10*3/uL (1.80-7.70); Neutrophils % (A) 63.8 %; Platelet Count 245 X 10*3/uL (140-440); RBC 4.94 X 10*6/uL (4.40-5.60); RDW 14.6 % (11.5-14.5); WBC 7.44 X 10*3/uL (4.50-10.00)
[2022-04-14 16:22] LABS: African American GFR (CKD) 111.7 (60.0-200.0); Anion Gap 13.4 mmol/L (10.00-18.00); Blood Urea Nitrogen 8.7 mg/dL (9.0-27.0); Carbon Dioxide 24.4 mmol/L (20.0-27.5); Non-African American GFR(CKD) 96.4 (60.0-200.0); Potassium 4.5 mmol/L (3.5-5.5)
== END | disposition home or self-care (01) ==
LOC: LABPAT 08:31
PROVIDERS: ATTEND Thoracic Surgery (Cardiothoracic Vascular Surgery)
DX: Z01.812 Encounter for preprocedural laboratory examination (principal); C41.3 Malignant neoplasm of ribs, sternum and clavicle
CPT/HCPCS: 80051; 82565; 82947; 84520; 85025; 85610; 85730; 93005

== ENCOUNTER 2022-04-21 06:55 | Day surgery (SDC) | payer BC ==
[2022-04-19 10:04] VITALS: BMI 33.7
[~2022-04-21 06:55] MED LIST: LACTATED RINGERS 1,000 ML IV SCH
[2022-04-21] MEDS ORDERED: ONDANSETRON 4 MG/2 ML VIAL ONE ×2 (07:17→12:37)
[2022-04-21 07:59] LABS: Glucose,Whole Blood 133 mg/dL (70-110)
[2022-04-21] MEDS ORDERED: PROPOFOL 10 MG/ML 20 ML VIAL IV ONE (08:45)
[2022-04-21] MEDS ORDERED: PHENYLEPHRINE-0.9% NACL SYG 1,000 MCG/10 ML SYRINGE ONE (08:45)
[2022-04-21] MEDS ORDERED: MIDAZOLAM 2 MG/2 ML VIAL ONE (08:45)
[2022-04-21] MEDS ORDERED: HYDROmorphone (PF) 1 MG/ML ONE (08:45)
[2022-04-21] MEDS ORDERED: SUCCINYLCHOLINE CHLORIDE 100 MG/5 ML SYR IV ONE (08:45)
[2022-04-21] MEDS ORDERED: GLYCOPYRROLATE 0.2 MG/ML 2 ML VIAL ONE (08:45)
[2022-04-21] MEDS ORDERED: ROCURONIUM 10 MG/ML (5 ML VIAL) IV ONE (08:45)
[2022-04-21] MEDS ORDERED: LIDOCAINE 2% INJ 20 MG/ML (2 ML VIAL) ONE (08:45)
[2022-04-21] MEDS ORDERED: NEOSTIGMINE 1 MG/ML 10 ML VIAL ONE (08:45)
[2022-04-21] MEDS ORDERED: fentaNYL (PF) 50 MCG/ML 2 ML AMP ONE (08:45)
[2022-04-21] MEDS ORDERED: SODIUM CHLORIDE 0.9% 50 ML with ceFAZolin 2,000 MG IV ONE ×2 (09:10)
[2022-04-21] MEDS ORDERED: BUPIVACAINE (PF) 0.5% 30 ML VIAL SQ ONE ×2 (09:13→09:47)
[2022-04-21] MEDS ORDERED: LACTATED RINGERS 1,000 ML IV ONE (09:41)
--- NOTE | 2022-04-21 10:14 | P.OP ---
Date of Procedure: 04/21/22 Preoperative Diagnosis: Expansile rib lesion right sixth rib Postoperative Diagnosis: Same Procedure(s) Performed: Excisional biopsy right sixth rib Anesthesia: GETA Surgeon: Segun Adams Double Spindle Shaper Operator #2: Fuentes Roth Estimated Blood Loss (ml): 25 IV fluids (ml): 800 Urine output (ml): 0 Pathology: other (Portion of right sixth rib sent for pathology and cultures) Condition: stable Disposition: PACU Indications for Procedure: 61-year-old male with complaints of pain and CT evidence of multiple rib lesions consistent with multiple myeloma or metastatic cancer. Blood work and bone marrow are negative. Previous biopsy by radiology was nondiagnostic. Rib biopsy was requested by oncology. Operative Findings: Expansile lesion in right sixth rib laterally Description of Procedure: Patient was brought to the operating room placed supine on the operating table anesthetized and intubated. He was turned in the left lateral decubitus position. The ribs were counted and the sixth rib was marked. Right chest was sterilely prepped and draped. Incision was made over the sixth rib and carried down through skin and subcutaneous tissue. Latissimus muscle was mobilized and retracted posteriorly. Incision was carried through the serratus muscle onto the underlying rib. This rib was explored and no expansile lesion was noted. Dissection was carried Neath the latissimus muscle and the ribs were counted posteriorly. The sixth rib was one below the rib we had identified from the surface. Dissection was carried onto the sixth rib in the expansile lesion was identified. Extrapleural dissection was carried out around the rib at the level of the lesion. The intercostal vessels and nerves were spared. Portion of the sixth rib containing the expansile lesion was excised. A portion of the bone marrow was removed and sent for cultures including aerobic, anaerobic, acid fast, and fungal cultures. The ribs specimen itself was placed in formalin and sent to pathology for decalcification and permanent sections. Good hemostasis was noted in the field. Serratus muscle was closed with 0 Vicryl suture. Subcutaneous tissue was closed in 2 layers with 2-0 Vicryl suture. Skin was closed with 3-0 Vicryl subcuticular stitch. Skin glue and dry sterile dressing were applied. Patient was turned supine and extubated and transferred to re covery room in stable condition.
[2022-04-21 10:16] VITALS: TEMP 97.3
[2022-04-21] MEDS ORDERED: HYDROmorphone 0.5 MG/0.5 ML SYRINGE IVP ONE ×4 (10:18→11:03)
[2022-04-21] MEDS: MEPERIDINE 50 MG/ML SYRINGE IVP ONE ×2 (10:23→10:39)
[2022-04-21] MEDS: fentaNYL (PF) 50 MCG/ML 2 ML AMP IV ONE ×2 (11:11→11:21)
--- NOTE | 2022-04-21 11:13 | XR ---
EXAMINATION TYPE: XR chest 1V portable DATE OF EXAM: 04/21/2022 COMPARISON: Chest x-ray dated 12/09/2020 HISTORY: Status post rib biopsy TECHNIQUE: Single frontal view of the chest is obtained. FINDINGS: There is subcutaneous emphysema. Some pleural thickening noted along the right lateral hanane st margin. Lung volumes are low. No evident pneumothorax. Patchy bibasilar density is noted, right he midiaphragm remains mildly elevated. Cardiac mediastinal silhouette is stable accounting for differen abigail in technique. IMPRESSION: No evident complication status post rib biopsy. Expiratory rotated exam, follow-up as in dicated. Probable basilar atelectasis, postop changes.
[2022-04-21 11:29] LABS: Glucose,Whole Blood 193 mg/dL (70-110)
[2022-04-21] MEDS ORDERED: KETOROLAC 15 MG/ML 1 ML VIAL ONE (12:38)
[2022-04-21] MEDS ORDERED: KETOROLAC 15 MG/ML 1 ML VIAL IVP ONE (12:44)
[2022-04-21] MEDS ORDERED: ONDANSETRON 4 MG/2 ML VIAL IVP ONE (12:44)
[2022-04-21 14:18] VITALS: RESP 16
[2022-04-21 15:53] VITALS: BP 138/82; PULSE 109
== END 2022-04-21 15:53 | disposition home or self-care (01) ==
LOC: OR 06:55
PROVIDERS: ATTEND Thoracic Surgery (Cardiothoracic Vascular Surgery)
DX: C90.00 Multiple myeloma not having achieved remission (principal); E11.9 Type 2 diabetes mellitus without complications; I10 Essential (primary) hypertension; E66.9 Obesity, unspecified; Z68.32 Body mass index [BMI] 32.0-32.9, adult; F17.290 Nicotine dependence, other tobacco product, uncomplicated; Z79.84 Long term (current) use of oral hypoglycemic drugs; Z79.891 Long term (current) use of opiate analgesic; Z79.899 Other long term (current) drug therapy
CPT/HCPCS: 88342; 88307; 88311; 88341; 87070; 87205; 87075; 87116; 87102; 87206; 71045; 20999; J2250; J2710; J2175; J2405; J0690; J3010; J1170 ×2; J1885; J2370; J0330; J2704; J2001

== ENCOUNTER → 2022-05-13 | Outpatient (CLI) | payer BC | END | disposition home or self-care (01) | LOC: RADPETMAIN 08:56 | PROVIDERS: ATTEND Internal Medicine Hematology & Oncology | DX: C90.00 Multiple myeloma not having achieved remission (principal) | CPT/HCPCS: 78815; A9552 ==

== ENCOUNTER → 2022-08-08 | Outpatient (CLI) | payer BC ==
--- NOTE | 2022-08-08 15:40 | NM ---
EXAMINATION TYPE: NM bone scan whole body DATE OF EXAM: 08/08/2022 COMPARISON: Prior bone scan 01/26/2022, PET/CT 05/13/2022 HISTORY: Multiple myeloma, C 90.00 Delayed whole-body scanning was performed following the injection of 20.8 mCi Tc 99m MDP. Images acq uired 3.5 hours post injection. FINDINGS: Similar distribution of abnormal uptake compared to prior exam. Uptake along the right sixth rib diane esponds to the lytic change seen on PET/CT, uptake along the left seventh rib and eighth rib correspo nding to abnormality seen on patient's PET/CT. Left posterior elements of T10 shows a lytic lucency a nd corresponding increased uptake, left L1 uptake also corresponds to lytic lucencies seen on PET/CT. The uptake in the posterior elements of L1 was not as pronounced on prior bone scan, abnormal foci w ithin the pelvis seen on PET/CT are not seen with certainty on the bone scan, there are lytic lucenci es bilaterally within the pelvis along the ileum, right scapula shows abnormality on PET/CT not seen on bone scan. Soft tissue uptake is normal and stable. IMPRESSION: Findings consistent with patient's history of multiple myeloma
== END | disposition home or self-care (01) ==
LOC: RADNMMAIN 10:13
PROVIDERS: ATTEND Internal Medicine Hematology & Oncology
DX: Z03.89 Encounter for observation for other suspected diseases and conditions ruled out (principal); C90.00 Multiple myeloma not having achieved remission
CPT/HCPCS: 78306; A9503

== ENCOUNTER → 2022-08-11 | Outpatient (CLI) | payer BC ==
--- NOTE | 2022-08-11 14:07 | US ---
EXAMINATION TYPE: US venous doppler duplex LE BI DATE OF EXAM: 08/11/2022 1:26 PM COMPARISON: NONE CLINICAL HISTORY: 61-year-old male R22.41 SWELLING LT LIMB,R22.42 SWELLING RT LOWER LIMB. Edema. SIDE PERFORMED: Bilateral TECHNIQUE: The lower extremity deep venous system is examined utilizing real time linear array sonog sandra with graded compression, doppler sonography and color-flow sonography. FINDINGS: VESSELS IMAGED: Common Femoral Vein Deep Femoral Vein Greater Saphenous Vein * Femoral Vein Popliteal Vein Small Saphenous Vein * Proximal Calf Veins (* superficial vessels) Right Leg: Negative for DVT Left Leg: Negative for DVT IMPRESSION: No evidence for DVT within the bilateral lower extremities imaged from the groin to the upper calves.
== END | disposition home or self-care (01) ==
LOC: RADUSWWP 12:58
PROVIDERS: ATTEND Internal Medicine Hematology & Oncology
DX: R22.42 Localized swelling, mass and lump, left lower limb (principal); R22.41 Localized swelling, mass and lump, right lower limb
CPT/HCPCS: 93970

== ENCOUNTER → 2022-10-03 | Outpatient (CLI) | payer BC ==
--- NOTE | 2022-10-03 10:44 | MR ---
EXAMINATION TYPE: MR lumbar spine wo/w con DATE OF EXAM: 10/03/2022 COMPARISON: CT scan 02/08/2022, and scan 05/13/2022, bone scan 08/08/2022 HISTORY: Multiple myeloma, mets TECHNIQUE: T1 and T2 axial and sagittal images of the lumbar spine are submitted. FINDINGS: There is no abnormal signal seen within the visualized spinal cord or paraspinal soft tissu es. There are areas of abnormal signal involving virtually every vertebral segment extending from the low er thoracic spine and sacrum compatible with lytic bone lesions and compatible with multiple myeloma. Most marked findings are seen at L5 and L1. At L1 there is pedicular involvement and encroachment up on spinal canal. Additionally, there is a linear area of abnormal signal along the superior endplate of L1 suspicious for a pathologic mild compression fracture similar to prior CT scan. Additionally th ere is abnormal signal noted within multiple lesions seen in the sacrum and within the [id number] of the right iliac bone. At L1-2 there is hypertrophic change of the facets with circumferential disc bulging. No focal hernia tion or canal stenosis. At L2-3 there is hypertrophic change of the facets with circumferential disc bulging but no disc iraj iation or canal stenosis. No foraminal approach. At L3-4 there is circumferential disc bulging with hypertrophic change since. No disc herniation or c anal stenosis. No foraminal At L4-5 there is more advanced facet arthropathy with broad-based disc bulging. No canal stenosis. Ve ry mild bilateral foraminal At L5-S1 there is hypertrophic change since facet arthropathy. No disc herniation, canal stenosis, or foraminal graft there is a 5.1 cm abdominal aortic aneurysm which as been previously reported by CT scan 02/08/2022. IMPRESSION: 1. Numerous intraosseous lesions most marked at L1 compatible with widespread neoplastic process. Wou ld be compatible with multiple myeloma or metastatic disease. 2. A pathologic mild superior endplate compression fracture L1 similar to prior CT scan. 3. Large abdominal aortic aneurysm measuring 5.1 cm stable from prior CT scan 02/08/2022.
== END | disposition home or self-care (01) ==
LOC: RADMRIMAIN 07:42
PROVIDERS: ATTEND Internal Medicine Hematology & Oncology
DX: C90.00 Multiple myeloma not having achieved remission (principal); M48.56XA Collapsed vertebra, not elsewhere classified, lumbar region, initial encounter for fracture; I71.40 Abdominal aortic aneurysm, without rupture, unspecified
CPT/HCPCS: 72158; A9585

== ENCOUNTER → 2023-04-07 | Outpatient (CLI) | payer BC ==
--- NOTE | 2023-04-07 21:55 | PE ---
EXAMINATION TYPE: PET CT fusion skull to thigh DATE OF EXAM: 04/07/2023 CLINICAL INDICATION:Male, 62 years old with history of C90.00; TECHNIQUE: Following the intravenous administration of 12.5 mCi of F-18 FDG, whole body images are performed from the skull base to the midthigh. Images are reviewed on the computer in the coronal, a xial, and sagittal planes. Reconstructed rotating images are created on independent workstation and reviewed on the computer. A non-contrast CT is performed in conjunction with the PET scan. Glucose level 132 mg/dL COMPARISON: CT 12/27/2014, PET/CT 05/13/2022, FINDINGS: Mediastinal SUV mean is 1.5. Hepatic parenchyma SUV mean is 2.5. SKULL BASE AND NECK: No suspicious radiotracer activity. CHEST, MEDIASTINUM, AND HILAR REGION: No suspicious radiotracer activity. ABDOMEN AND PELVIS: No suspicious radiotracer activity. MUSCULOSKELETAL STRUCTURES: No suspicious radiotracer activity. Stable scattered lytic lesions throughout the osseous structures including throughout the spine, ribs bilaterally pelvis OTHER CT: Atherosclerosis of the arterial vasculature. Coronary artery atherosclerosis. Infrarenal ab dominal aortic aneurysm measuring up to 5.5 cm previously 5.3 cm in 2021 and 3.6 cm in 2014.. Bilater al fat-containing inguinal hernias. IMPRESSION: 1. Stable lytic lesions without suspicious radiotracer activity. 2. Infrarenal abdominal aortic aneurysm measuring up to 5.5 cm previously 5.3 cm in 2021 and 3.6 cm in 2014.. Surgical consultation recommended.
== END | disposition home or self-care (01) ==
LOC: RADPETMAIN 08:27
PROVIDERS: ATTEND Internal Medicine Hematology & Oncology
DX: C90.00 Multiple myeloma not having achieved remission (principal); I71.43 Infrarenal abdominal aortic aneurysm, without rupture
CPT/HCPCS: 78815; A9552

== ENCOUNTER → 2023-06-01 | Outpatient (CLI) | payer BC ==
[2023-06-01 07:47] LABS: African American GFR (CKD) >90 (>60 ml/min/1.73 sqM); Blood Urea Nitrogen 13 mg/dL (9-20); Non-African American GFR(CKD) >90 (>60 ml/min/1.73 sqM)
--- NOTE | 2023-06-01 09:09 | CT ---
EXAMINATION TYPE: CT angio abdomen pelvis CT DLP: 2007.8 mGycm, Automated exposure control for dose reduction was used. DATE OF EXAM: 06/01/2023 8:32 AM COMPARISON: PET/CT 04/07/2023, 05/13/2022, CT abdomen pelvis 02/08/2022 CLINICAL INDICATION:Male, 62 years old with history of I71.43 INFRARENAL ABDOMINAL AORTIC ANEURYSM; I nfrarenal abdominal aortic aneurysm. TECHNIQUE: Multiple thin slice sub-millimeter images were obtained through the abdomen and pelvis bef ore and after administration of contrast. Patient was given Isovue 370, 100 cc intravenously. 3-D r econstructed images and maximum intensity projection images were obtained of the abdomen, pelvis, and lower extremities. FINDINGS: CTA Abdomen and pelvis: Redemonstration of infrarenal abdominal aortic fusiform aneurysm measuring 5. 5 x 5.5 cm (series 6, image 105). Previous measured 5.3 x 5.0 cm. No evidence for intramural hematoma or dissection. Atherosclerotic plaquing with mural thrombus is identified within the abdominal aorta . The origins of the superior mesenteric artery, renal arteries, inferior mesenteric artery, and juan iac axis are patent. Atherosclerotic plaquing with some mural thrombus formation is identified in th e common iliac arteries. Stable ectasia of the left common iliac artery just above the bifurcation me asuring up to 1.7 cm. VISCERA: The liver, spleen, adrenal glands, kidneys, pancreas, and gallbladder are not optimally enha nced due the arterial phase utilized. LIVER: Diffusely hypoattenuating parenchyma. Region of focal fatty sparing adjacent to the gallbladde r. GALLBLADDER AND BILE DUCTS: Unremarkable. PANCREAS: Unremarkable. SPLEEN: Unremarkable. ADRENAL GLANDS: Unremarkable. KIDNEYS AND URETERS: No evidence of hydronephrosis or renal calculus. The kidneys enhance symmetrical ly. Left renal cyst measuring up to 1.0 cm. PELVIS BLADDER: Unremarkable REPRODUCTIVE: Coarse calcifications of the prostate gland are identified. ABDOMEN & PELVIS STOMACH AND BOWEL: Stomach and duodenum are unremarkable. No focal bowel wall thickening or surroundi ng inflammatory changes. The appendix is within normal limits. No evidence of bowel obstruction. PERITONEUM: No evidence of pneumoperitoneum or free fluid. Few peripheral calcified peritoneal mice w ithin the anterior abdomen. MUSCULOSKELETAL: No acute osseous abnormalities. Redemonstration of multiple scattered lytic lesions throughout the osseous structures consistent with known multiple myeloma. No grossly overall signific ant change from prior exam. LYMPH NODES: No gross evidence for lymphadenopathy. SOFT TISSUE/ABDOMINAL WALL: Bilateral fat filled inguinal hernias. LOWER CHEST: The visualized lungs are clear. Moderate coronary artery calcifications. Elevation of th e right hemidiaphragm. IMPRESSION 1. Marginal increase in size of infrarenal abdominal aortic aneurysm measuring 5.5 x 5.5 cm, previou sly measured 5.3 x 5.0 cm. 2. Stable ectasia of the left common iliac artery measuring up to 1.7 cm. 3. Redemonstration of multiple osseous lytic lesions compatible with known multiple myeloma. 4. Hepatic steatosis.
== END | disposition home or self-care (01) ==
LOC: RADCTMAIN 07:14
PROVIDERS: ATTEND Surgery
DX: I71.43 Infrarenal abdominal aortic aneurysm, without rupture (principal); K76.0 Fatty (change of) liver, not elsewhere classified
CPT/HCPCS: 82565; 84520; 36415; 74174; Q9967

== ENCOUNTER → 2023-06-26 | Outpatient (CLI) | payer BC ==
[2023-06-26 16:29] LABS: ALT 69 U/L (8-49); AST 73 U/L (13-35); Chol/HDL Ratio 5.69 Ratio; LDL Cholesterol,Calculated 119.8 mg/dL (0.0-131.0)
== END | disposition home or self-care (01) ==
LOC: LABWHC1 09:11
PROVIDERS: ATTEND Internal Medicine Cardiovascular Disease
DX: E78.2 Mixed hyperlipidemia (principal)
CPT/HCPCS: 36415; 80061; 84450; 84460

== ENCOUNTER → 2023-09-28 | Outpatient (CLI) | payer BC ==
--- NOTE | 2023-10-02 23:33 | PE ---
EXAMINATION TYPE: PET CT fusion skull to thigh DATE OF EXAM: 09/28/2023 COMPARISON: CT abdomen pelvis 06/01/2023 Prior PET/CT: 04/07/2023 HISTORY: Myeloma TECHNIQUE: Following the intravenous administration of 11.08 mCi of F-18 FDG, whole body images are performed from the skull base to the midthigh. Images are reviewed on the computer in the coronal, a xial, and sagittal planes. Reconstructed rotating images are created on independent workstation and reviewed on the computer. A localization and attenuation correction CT is performed in conjunction with the PET scan. DLP: 1025.15 mGycm SCAN: Subsequent Blood glucose: 134 mg/dL Average Mediastinum SUV: 2.61 Average Liver SUV: 3.4 FINDINGS: NECK: No abnormal uptake THORAX: No abnormal uptake ABDOMEN: No abnormal uptake PELVIS: No abnormal uptake OSSEOUS STRUCTURES: No abnormal uptake LOCALIZATION CT: No lytic lesion within the axial skeleton are without significant radiotracer uptake . No suspicious uptake within an expansile area within the lateral left rib. Image 143 no suspicious uptake within a sclerotic region of the right mid rib, image 144. Within the L5 lytic lesion of the vertebral body there may be some mild intermediate signal 3.43. COMPARISON: The abdominal aortic aneurysm currently measures 5.23 cm. IMPRESSION: 1. No suspicious radiotracer accumulation within the known lytic lesions. No suspicious hyperactivity by PET/CT. 2. Some mildly intermediate signal may be within the L5 vertebral level as discussed above. 3. Abdominal aortic aneurysm is 5.2 cm.
== END | disposition home or self-care (01) ==
LOC: RADPETMAIN 11:00
PROVIDERS: ATTEND Internal Medicine Hematology & Oncology
DX: C90.00 Multiple myeloma not having achieved remission (principal); I71.40 Abdominal aortic aneurysm, without rupture, unspecified
CPT/HCPCS: 78815; A9552

== ENCOUNTER → 2024-03-24 | Outpatient (CLI) | payer BC ==
--- NOTE | 2024-03-24 20:19 | PE ---
EXAMINATION TYPE: PET CT fusion whole body DATE OF EXAM: 03/24/2024 CLINICAL INDICATION:Male, 63 years old with history of C90.00 MULTIPLE MYELOMA NOT HAVING ACHIEVED RE MISS; TECHNIQUE: Following the intravenous administration of 10.29 mCi of F-18 FDG, whole body images are performed from the skull base to the midthigh. Images are reviewed on the computer in the coronal, axial, and sagittal planes. Reconstructed rotating images are created on independent workstation and reviewed on the computer. A non-contrast CT is performed in conjunction with the PET scan. Glucose level 95 mg/dL CT DLP: 1564 mGycm, Automated exposure control for dose reduction was used. COMPARISON: CT 06/01/2023, PET/CT 09/28/2023 , FINDINGS: Mediastinal SUV mean is 3.2. Hepatic parenchyma SUV mean is 3.. SKULL BASE AND NECK: No suspicious radiotracer activity. CHEST, MEDIASTINUM, AND HILAR REGION: No suspicious radiotracer activity. ABDOMEN AND PELVIS: No suspicious radiotracer activity. MUSCULOSKELETAL STRUCTURES: * No suspicious radiotracer activity. * No suspicious uptake within the spinous process seen on prior. * Stable scattered lytic lesions throughout the osseous structures including throughout the spine, r ibs bilaterally pelvis OTHER CT: Atherosclerosis of the arterial vasculature. Coronary artery atherosclerosis. Infrarenal ab dominal aortic aneurysm measuring up to 4.0 x 3.9 cm, previously 5.5 cm and 5.3 cm in 2021 and 3.6 cm in 2014.. Bilateral fat-containing inguinal hernias. Peripherally calcified lesion in the posterior right neck. Hepatic steatosis. Colonic diverticulosis. Postsurgical changes anterior abdomen. IMPRESSION: 1. Stable lytic lesions without suspicious radiotracer activity. 2. Scattered cysts stable lytic lesions throughout osseous structures without abnormal uptake. 3. Infrarenal abdominal aortic aneurysm measuring up to 4.0 on today's exam.
== END | disposition home or self-care (01) ==
LOC: RADPETMAIN 06:54
PROVIDERS: ATTEND Internal Medicine Hematology & Oncology
DX: C90.00 Multiple myeloma not having achieved remission (principal); I71.43 Infrarenal abdominal aortic aneurysm, without rupture
CPT/HCPCS: 78816; A9552

== ENCOUNTER → 2024-09-19 | Outpatient (CLI) | payer BC ==
--- NOTE | 2024-09-22 13:02 | PE ---
EXAMINATION TYPE: PET CT fusion skull to thigh DATE OF EXAM: 09/19/2024 COMPARISON: No recent pertinent CT. Prior PET/CT: 03/24/2024 CLINICAL INDICATION: Male, 63 years old with history of C90.00 MULTIPLE MYLEOMA, TECHNIQUE: Following the intravenous administration of 7.77 mCi of F-18 FDG, whole body images are p erformed from the skull base to the midthigh. Images are reviewed on the computer in the coronal, ax ial, and sagittal planes. Reconstructed rotating images are created on independent workstation and r eviewed on the computer. A localization and attenuation correction CT is performed in conjunction w ith the PET scan. DLP: 943.07 mGycm SCAN: Subsequent Blood glucose: 106 mg/dL Average Mediastinum SUV: 2.53 Average Liver SUV: 3.57 FINDINGS: NECK: No abnormal uptake THORAX: No abnormal uptake ABDOMEN: No abnormal uptake PELVIS: No abnormal uptake OSSEOUS STRUCTURES: No abnormal uptake. LOCALIZATION CT: Abdominal aorta measures up to 3.8 cm AP dimension current study. The previous chronic lytic changes within the lower thoracic spine with no abnormal uptake. Additiona l lytic areas are within the cervical spine bilateral ribs lumbar spine iliac pelvis bilaterally COMPARISON: No significant interval changes. IMPRESSION: 1. No suspicious uptake. 2. Multiple chronic appearing lytic lesions within the osseous structures [facility], Workstation: [facility], 09/22/2024 1:00 PM
== END | disposition home or self-care (01) ==
LOC: RADPETMAIN 10:33
PROVIDERS: ATTEND Internal Medicine Hematology & Oncology
DX: C90.00 Multiple myeloma not having achieved remission (principal)
CPT/HCPCS: 78815; A9552

== ENCOUNTER → 2025-03-27 | Outpatient (CLI) | payer BC ==
[2025-03-27 08:57] LABS: Basophils # (A) 0.09 10*3/uL (0.00-0.10); Basophils % (A) 2.6 %; Eosinophils # (A) 0.28 10*3/uL (0.04-0.35); Eosinophils % (A) 8.2 %; HCT 44.9 % (39.6-50.0); HGB 14.9 g/dL (13.0-17.0); Lymphocytes # (A) 1.15 10*3/uL (0.90-5.00); Lymphocytes % (A) 33.5 %; MCH 29.7 pg (27.0-32.0); MCHC 33.2 g/dL (32.0-37.0); MCV 89.6 fL (80.0-97.0); Mean Platelet Volume 9.8 fL (9.5-12.2); Monocytes # (A) 0.28 10*3/uL (0.20-1.00); Monocytes % (A) 8.2 %; Neutrophils # (A) 1.62 10*3/uL (1.80-7.70); Neutrophils % (A) 47.2 %; Platelet Count 111 10*3/uL (140-440); RBC 5.01 10*6/uL (4.40-5.60); RDW 14.8 % (11.5-14.5); WBC 3.43 10*3/uL (4.50-10.00)
[2025-03-27 09:18] LABS: ALT 34 U/L (4-49); AST 43 U/L (17-59); African American GFR (CKD) >90 (>60 ml/min/1.73 sqM); Albumin 4.7 g/dL (3.5-5.0); Alkaline Phosphatase 73 U/L (38-126); Amylase 44 U/L (30-110); Anion Gap 7 mmol/L; Blood Urea Nitrogen 14 mg/dL (9-20); Calcium 10.1 mg/dL (8.4-10.2); Carbon Dioxide 29 mmol/L (22-30); Chloride 103 mmol/L (98-107); Creatine Kinase 55 U/L (55-170); Glucose 114 mg/dL (74-99); LDH 143 U/L (120-246); Lipase 151 U/L (23-300); Magnesium 1.8 mg/dL (1.6-2.3); Non-African American GFR(CKD) >90 (>60 ml/min/1.73 sqM); Potassium 4.5 mmol/L (3.5-5.1); Sodium 139 mmol/L (137-145); Total Bilirubin 0.9 mg/dL (0.2-1.3); Total Protein 7.8 g/dL (6.3-8.2); Uric Acid 4.6 mg/dL (3.5-8.5)
[2025-03-27 10:13] LABS: Appearance,Urine Clear (Clear); Bilirubin,Urine Negative (Negative); Blood,Urine Negative (Negative); Color,Urine Colorless; Glucose,Urine (UA) 4+ (Negative); Ketones,Urine Negative (Negative); Leukocyte Esterase,Urine Negative (Negative); Nitrite,Urine Negative (Negative); PH, Urine 6.5 (5.0-8.0); Protein,Urine Negative (Negative); Specific Gravity,Urine 1.034 (1.001-1.035); Urobilinogen,Urine <2.0 mg/dL (<2.0)
[2025-03-27 11:48] LABS: T4, Free (Free Thyroxine) 1.15 ng/dL (0.78-2.19)
[2025-03-27 19:47] LABS: Chol/HDL Ratio 3.87 Ratio; LDL Cholesterol,Calculated 118.5 mg/dL (0.0-131.0)
--- NOTE | 2025-03-28 18:39 | PE ---
EXAMINATION TYPE: PET CT fusion skull to thigh DATE OF EXAM: 03/27/2025 CLINICAL INDICATION:Male, 64 years old with history of C90.00 multiple myeloma; TECHNIQUE: Following the intravenous administration of 13.05 mCi of F-18 FDG, whole body images are performed from the skull base to the Mid thigh. Images are reviewed on the computer in the coronal, axial, and sagittal planes. Reconstructed rotating images are created on independent workstation an d reviewed on the computer. A non-contrast CT is performed in conjunction with the PET scan. Glucos e level 99 mg/dL CT DLP: 1861 mGycm, Automated exposure control for dose reduction was used. COMPARISON: CT None, PET/CT 09/19/2020 406 [id number]., MRI: None FINDINGS: Mediastinal SUV mean is 2.1. Hepatic parenchyma SUV mean is 3.0. SKULL BASE AND NECK: No suspicious radiotracer activity. CHEST, MEDIASTINUM, AND HILAR REGION: No suspicious radiotracer activity. ABDOMEN AND PELVIS: No suspicious radiotracer activity. MUSCULOSKELETAL STRUCTURES: * No suspicious radiotracer activity. * Stable scattered lytic lesions throughout the osseous structures including throughout the spine, r ibs bilaterally pelvis OTHER CT: Atherosclerosis of the arterial vasculature. Coronary artery atherosclerosis. Infrarenal ab dominal aortic aneurysm measuring up to 4.0 x 3.9 cm similar to prior, previously 5.5 cm and 5.3 cm i n 2021 and 3.6 cm in 2014.. Bilateral fat-containing inguinal hernias. Peripherally calcified lesion in the posterior right neck. Hepatic steatosis. Colonic diverticulosis. Postsurgical changes anterior abdomen. Cholelithiasis. IMPRESSION: 1. Stable lytic lesions without suspicious radiotracer activity. No new suspicious uptake in the oss eous structures. 2. Infrarenal abdominal aortic aneurysm measuring up to 4.0 centimeters is stable. [facility], , 03/28/2025 6:37 PM
== END | disposition home or self-care (01) ==
LOC: RADPETMAIN 08:19
PROVIDERS: ATTEND Internal Medicine Hematology & Oncology
DX: I71.43 Infrarenal abdominal aortic aneurysm, without rupture (principal)
CPT/HCPCS: 84439; 80061; 80053; 84443; 82150; 82550; 83615; 83690; 83735; 84550; 85025; 81003; 87324; 82306; 87045; 87329; 87046; 83036; 78815; A9552